=== PATIENT | male | born 1950 | race American Indian/Alaskan Native ===

== ENCOUNTER 2017-11-07 17:54 | Emergency (ER) | payer MEDICARE ==
[2017-11-07 19:54] LABS: Bacteria,Urine 1+ /HPF (Negative); Bilirubin,Urine SM (Negative); Blood,Urine MOD (Negative); Color,Urine Amber (Yellow); Hyaline Casts,Urine 4 /LPF; Mucus,Urine 2+ /HPF
[2017-11-07 19:56] LABS: WBC,Urine > 182.0 /HPF (0.0-6.0)
[2017-11-07 20:11] LABS: Ictotest,Urine Negative (Negative)
[2017-11-08 00:46] VITALS: BP 137/92
--- NOTE | 2017-11-08 01:26 | Emergency Department Report ---
ED Male HPI - General Chief complaint: Urogenital-Male Stated complaint: ACUTE URINARY RETENTION Time Seen by Provider: 11/08/17 00:24 Source: patient, family, RN notes reviewed, old records reviewed Mode of arrival: Ambulatory Limitations: No Limitations - History of Present Illness Initial comments: This is a 67-year-old male who is unknown to this provider previously. His primary care doctor is Dr. Garcia. He reports a distant history of prostatectomy. He recently completed a two- week antibiotic course of ciprofloxacin with Pyridium. He presents to the ER with a complaint of urinary hesitancy, dysuria, but no urinary obstruction. He denies headache, neck pain, upper abdominal pain. His urinary hesitancy has been constant for the past day or so, does not radiate anywhere, does not have exacerbating or relieving factors. MD Complaint: other -: Gradual Location: abdomen (suprapubic) Radiation: none Severity: mild Quality: aching Improves with: none Worsens with: none urinary retention, dysuria. denies: discharge, swelling, mass, rash, blood in urine, fever, nausea/vomiting, incontinence - Related Data Home Medications Medication Instructions Recorded Confirmed Last Taken Gabapentin 100 mg PO BID 12/20/13 01/04/17 02/16/15 Lisinopril 10 mg PO DAILY 12/20/13 01/04/17 02/16/15 Omeprazole 20 mg PO BID 01/04/17 01/04/17 Unknown Phenytoin [Dilantin] 100 mg PO DAILY 01/04/17 01/04/17 Unknown Previous Rx's Medication Instructions Recorded Last Taken Type ALBUTEROL Inhaler [ProAir HFA 2 puff IH QID PRN 30 Days 01/06/17 Unknown Rx Inhaler] inhalation Gabapentin [Neurontin] 200 mg PO BID #60 capsule 01/06/17 Unknown Rx Levofloxacin [Levaquin TAB] 750 mg PO Q24H #5 tablet 01/06/17 Unknown Rx Nitrofurantoin Dixon/M-Cryst 100 mg PO Q12HR #14 capsule 11/08/17 Unknown Rx [Macrobid CAP] Allergies Allergy/AdvReac Type Severity Reaction Status Date / Time No Known Allergies Allergy Verified 07/12/14 09:16 ED Review of Systems ROS: Stated complaint: ACUTE URINARY RETENTION Other details as noted in HPI Constitutional: denies: fever, malaise Eyes: denies: eye discharge ENT: denies: epistaxis Respiratory: denies: cough Cardiovascular: denies: chest pain Gastrointestinal: denies: nausea, vomiting Genitourinary: frequency. denies: testicular pain Musculoskeletal: denies: back pain Skin: denies: lesions Neurological: denies: weakness Psychiatric: anxiety ED Past Medical Hx - Past Medical History Previous Medical History?: Yes Hx Hypertension: Yes Hx Heart Attack/AMI: No Hx GERD: Yes Hx Seizures: Yes Additional medical history: Brain aneurysm patient states he had 7 aneurysms, neuropathy secondary to chemotherapy - Surgical History Past Surgical History?: Yes Hx Cholecystectomy: Yes Additional Surgical History: Brain - Social History Smoking Status: Current Every Day Smoker Substance Use Type: None - Medications Home Medications: Home Medications Medication Instructions Recorded Confirmed Last Taken Type Gabapentin 100 mg PO BID 12/20/13 01/04/17 02/16/15 History Lisinopril 10 mg PO DAILY 12/20/13 01/04/17 02/16/15 History Omeprazole 20 mg PO BID 01/04/17 01/04/17 Unknown History Phenytoin [Dilantin] 100 mg PO DAILY 01/04/17 01/04/17 Unknown History ALBUTEROL Inhaler [ProAir HFA 2 puff IH QID PRN 30 Days 01/06/17 Unknown Rx Inhaler] inhalation Gabapentin [Neurontin] 200 mg PO BID #60 capsule 01/06/17 Unknown Rx Levofloxacin [Levaquin TAB] 750 mg PO Q24H #5 tablet 01/06/17 Unknown Rx Nitrofurantoin Dixon/M-Cryst 100 mg PO Q12HR #14 capsule 11/08/17 Unknown Rx [Macrobid CAP] ED Physical Exam - General Limitations: No Limitations General appearance: alert, in no apparent distress - Head Head exam: Present: atraumatic, normocephalic - Eye Eye exam: Present: normal appearance. Absent: nystagmus - ENT ENT exam: Present: normal exam, normal orophraynx, mucous membranes moist, normal external ear exam - Neck Neck exam: Present: normal inspection, full ROM - Respiratory Respiratory exam: Present: normal lung sounds bilaterally. Absent: respiratory distress - Cardiovascular Cardiovascular Exam: Present: regular rate, normal rhythm, normal heart sounds. Absent: bradycardia, tachycardia, irregular rhythm, systolic murmur, diastolic murmur, rubs, gallop - GI/Abdominal GI/Abdominal exam: Present: soft, normal bowel sounds. Absent: distended, tenderness, guarding, rebound, rigid - Rectal Rectal exam: Present: deferred - exam: Present: normal inspection, other (there is no testicular tenderness. There is normal testicular lie bilaterally. There is normal cremasteric reflex bilaterally.). Absent: testicular tenderness External exam: Present: normal external exam. Absent: erythema, swelling - Extremities Exam Extremities exam: Present: normal inspection - Back Exam Back exam: Present: normal inspection, full ROM. Absent: tenderness, CVA tenderness (R), paraspinal tenderness, vertebral tenderness - Neurological Exam Neurological exam: Present: alert, oriented X3, CN II-XII intact, normal gait, other (Extraocular movements intact. Tongue midline. No facial droop. Facial sensation intact to light touch in the V1, V2, V3 distribution bilaterally. 5 and 5 strength in 4 extremities.. Sensation is intact to light touch in 4 extremities.). Absent: motor sensory deficit - Psychiatric Psychiatric exam: Present: normal affect, anxious - Skin Skin exam: Present: warm, dry, intact, normal color. Absent: rash ED Course Vital Signs 11/07/17 11/07/17 11/08/17 18:23 22:00 00:40 Temperature 98.3 F 98.1 F 97.6 F Pulse Rate 105 H 84 78 Respiratory 20 20 16 Rate Blood Pressure 147/106 139/107 Blood Pressure 137/92 [Right] O2 Sat by Pulse 95 97 95 Oximetry ED Medical Decision Making - Lab Data Vital Signs 11/07/17 11/07/17 11/08/17 18:23 22:00 00:40 Temperature 98.3 F 98.1 F 97.6 F Pulse Rate 105 H 84 78 Respiratory 20 20 16 Rate Blood Pressure 147/106 139/107 Blood Pressure 137/92 [Right] O2 Sat by Pulse 95 97 95 Oximetry Lab Results 11/07/17 Range/Units 19:03 Urine Color Sia (Yellow) Urine Turbidity Clear (Clear) Urine pH 5.0 (5.0-7.0) Ur Specific [place] 1.027 (1.003-1.030) Urine Protein 100 mg/dl (Negative) mg/dL Urine Glucose (UA) Neg (Negative) mg/dL Urine Ketones Neg (Negative) mg/dL Urine Blood Mod (Negative) Urine Nitrite Neg (Negative) Urine Bilirubin Sm (Negative) Urine Ictotest Negative (Negative) Urine Urobilinogen 4.0 (<2.0) mg/dL Ur Leukocyte Esterase Lg (Negative) Urine WBC (Auto) > 182.0 H (0.0-6.0) /HPF Urine RBC (Auto) 62.0 (0.0-6.0) /HPF U Epithel Cells (Auto) 2.0 (0-13.0) /HPF Urine Bacteria (Auto) 1+ (Negative) /HPF Urine WBC Clumps 2+ /HPF Hyaline Casts 4 /LPF Urine Mucus 2+ /HPF Urine Yeast (Budding) 3+ /HPF - Medical Decision Making Differential diagnosis, including but not limited to: Urinary tract infection Assessment and plan: 67-year-old male with some irritative, obstructive urinary symptoms, endorses a distant history of prostatectomy, who presents to the ER with a probable urinary tract infection. Patient does not have urinary tract obstruction as he is able to urinate. Patient has already completed a recent course of ciprofloxacin. There is a fair amount of resistance in the community to this antibiotic. He will therefore be started on Macrobid. Critical care attestation.: If time is entered above; I have spent that time in minutes in the direct care of this critically ill patient, excluding procedure time. ED Disposition Clinical Impression: UTI (urinary tract infection) Qualifiers: Urinary tract infection type: site unspecified Hematuria presence: without hematuria Qualified Code(s): N39.0 - Urinary tract infection, site not specified Disposition: DC- TO HOME OR SELFCARE Is pt being admited?: No Does the pt Need Aspirin: No Condition: Stable Instructions: Urinary Tract Infection in Men (ED) Additional Instructions: Continue current outpatient medications. Take the antibiotics as directed. Cultures was sent today, as also be available in the next 3-5 days. Please have a primary care doctor contact medical's Department to obtain culture results. Follow-up with the primary care doctor within the next 7 days, and if patient still has obstructive urinary symptoms, follow up with the urology specialist within the next month. Dr. Goldstein is a local urology specialist. Return to the ER right away with fevers, chills, lethargy, irritability, projectile vomiting, change in mental status, confusion, inability to urinate, inability to tolerate liquid feeds. Referrals: PRIMARY CARE, [Primary Care Provider] - 3-5 Days HERIBERTO GARCIA MD [Staff Physician] - 3-5 Days JOSIAS GOLDSTEIN MD [Staff Physician] - 3-5 Days
== END 2017-11-08 02:03 | disposition home or self-care (01) ==
LOC: ED 17:54
DX: N39.0 Urinary tract infection, site not specified (principal); K21.9 Gastro-esophageal reflux disease without esophagitis; I10 Essential (primary) hypertension; I67.1 Cerebral aneurysm, nonruptured; F17.200 Nicotine dependence, unspecified, uncomplicated; Z90.49 Acquired absence of other specified parts of digestive tract; Z79.01 Long term (current) use of anticoagulants
CPT/HCPCS: 81001; 87086; 99283

== ENCOUNTER 2018-05-22 00:08 | Inpatient (IN) | payer MEDICARE ==
[2018-05-22 01:57] LABS: Hematocrit 46.4 % (35.5-45.6); Hemoglobin 15.4 gm/dl (11.8-15.2); Mean Corpuscular HGB Conc 33 % (32-34); Mean Corpuscular Volume 94 fl (84-94); Platelet Count 297 K/mm3 (140-440); Red Blood Count 4.95 M/mm3 (3.65-5.03); Red Cell Distribution Width 13.6 % (13.2-15.2)
[2018-05-22 02:16] LABS: Alanine Aminotransferase 17 units/L (7-56); Albumin 3.6 g/dL (3.9-5); BUN/Creatinine Ratio 11; Blood Urea Nitrogen 14 mg/dL (9-20); Hemolysis Index 4
[2018-05-22] MEDS ORDERED: THORAZINE 50 MG in NACL 0.9% 100 ML IV ONE (03:38)
[2018-05-22] MEDS ORDERED: NACL 0.9% 1000 ML 1,000 ML IV ONE (03:40)
[2018-05-22 04:33] LABS: Bacteria,Urine 3+ /HPF (Negative); Bilirubin,Urine SM (Negative); Blood,Urine SM (Negative); Color,Urine Amber (Yellow); Hyaline Casts,Urine 44 /LPF; Mucus,Urine 3+ /HPF
[2018-05-22 04:34] LABS: WBC,Urine > 182.0 /HPF (0.0-6.0)
[2018-05-22 04:44] LABS: Ictotest,Urine Positive (Negative)
[2018-05-22] MEDS ORDERED: ROCEPHIN/NS 1 GM/50 ML 1 GM/50 ML BAG IV ONE (05:02)
--- NOTE | 2018-05-22 05:31 | Emergency Department Report ---
<ANN WOLFE - Last Filed: 05/22/18 10:38> ED General Adult HPI - General Chief complaint: Nausea/Vomiting/Diarrhea Stated complaint: HICCUPS/ABDOMINAL PAIN Time Seen by Provider: 05/22/18 03:21 - Related Data Home Medications Medication Instructions Recorded Confirmed Last Taken RX: Lisinopril 10 mg PO DAILY 12/20/13 05/22/18 02/16/15 Dilantin 400 mg PO DAILY 05/22/18 05/22/18 Unknown Metoprolol [Lopressor TAB] 50 mg PO BID 05/22/18 05/22/18 Unknown RX: Gabapentin [Neurontin] 100 mg PO BID 05/22/18 05/22/18 Unknown RX: Omeprazole 20 mg PO BID 05/22/18 05/22/18 Unknown Tamsulosin HCl [Flomax] 0.4 mg PO DAILY 05/22/18 05/22/18 Unknown levETIRAcetam [Keppra] 500 mg PO Q12H 05/22/18 05/22/18 Unknown Allergies Allergy/AdvReac Type Severity Reaction Status Date / Time No Known Allergies Allergy Verified 05/10/18 08:56 ED Past Medical Hx - Medications Home Medications: Home Medications Medication Instructions Recorded Confirmed Last Taken Type RX: Lisinopril 10 mg PO DAILY 12/20/13 05/22/18 02/16/15 History Dilantin 400 mg PO DAILY 05/22/18 05/22/18 Unknown History Metoprolol [Lopressor TAB] 50 mg PO BID 05/22/18 05/22/18 Unknown History RX: Gabapentin [Neurontin] 100 mg PO BID 05/22/18 05/22/18 Unknown History RX: Omeprazole 20 mg PO BID 05/22/18 05/22/18 Unknown History Tamsulosin HCl [Flomax] 0.4 mg PO DAILY 05/22/18 05/22/18 Unknown History levETIRAcetam [Keppra] 500 mg PO Q12H 05/22/18 05/22/18 Unknown History ED Medical Decision Making - Lab Data Result diagrams: 05/22/18 01:13 05/22/18 01:13 - Medical Decision Making I assumed care of patient. After IVF, patient had worsening tachycardia and work of breathing. He was moved to resuscitation room. Multiple orders provided. I ordered ABG. No indication of impending respiratory failure. I did detect mild hypoxia on triage vital signs. With hx of hiccups, concern for PNA, intrabdominal process or cardiac process. CTA chest revealed emphysematous changes without PNA or overt pulmonary edema. CT A/P revealed acute pyelonephritis, acute cystitis. Treated with IVF and ceftriaxone per my colleague. Did not received 30 ml/KG with normal BP and normal lactic acid level. Admitted to hospitalist service in guarded condition for UTI/sepsis 40 minutes of critical care time excluding procedures were used in the care of the patient. I was concerned for impending respiratory failure or cardiovascular collapse. I spoke with the at the bedside. I reviewed electronic medical record. Mr. Herrera required multiple interventions and assessments. I discussed case with admitting physician. Critical Care Time: Yes Critical care time in (mins) excluding proc time.: 40 Critical care attestation.: 40 minutes of critical care time excluding procedures were used in the care of the patient. Patient required multiple assessments and interventions. I reviewed the electronic medical record. I spoke with consultants involved in the care of the patient. ED Disposition Clinical Impression: Hiccups, UTI (urinary tract infection), Acute pyelonephritis Sepsis Qualifiers: Sepsis type: sepsis due to unspecified organism Qualified Code(s): A41.9 - Sepsis, unspecified organism Disposition: OP ADMIT IP TO THIS HOSP Is pt being admited?: Yes Does the pt Need Aspirin: No Condition: Stable <ADI LAYNE - Last Filed: 05/24/18 15:59> ED General Adult HPI - General Source: patient Mode of arrival: Ambulatory Limitations: No Limitations - History of Present Illness Initial comments: 67-year-old male with a past medical history of prostate cancer in remission, GERD, hypertension, seizures, brain aneurysm, a previous cholecystectomy presents to the hospital with complaints of hiccups for 3-4 days. One episode of vomiting. Decreased appetite reported. Generalized weakness without fever. Patient had been increased urination with a small amount of output at a time. Denies pain. PT takes Dilantin for peti mal sz. 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, neuropathy secondary to chemotherapy, prostate cancer status post radiation - Surgical History Past Surgical History?: Yes Hx Cholecystectomy: Yes Additional Surgical History: Brain - Social History Smoking Status: Current Every Day Smoker Substance Use Type: None ED Physical Exam - General Limitations: No Limitations - Other Other exam information: General: No limitations, patient is alert in no acute distress Head exam: Atraumatic, normocephalic Eyes exam: Normal appearance ENT: Moist mucous membrane Neck exam: Normal inspection, full range of motion, no meningismus nontender Respiratory exam: Clear to auscultation bilateral, no wheezes, rales, crackles Cardiovascular: Normal rate and rhythm, normal heart sounds Abdomen: Soft, nondistended, and nontender, with normal bowel sounds, no rebound, or guarding. Frequent hiccups noted during examination making it difficult for patient to speak Extremity: Full range of motion normal inspection no deformity Back: Normal Inspection, full range of motion, no tenderness Neurologic: Alert, oriented x3, cranial nerves intact, no motor or sensory deficit Psychiatric: normal affect, normal mood Skin: Warm, dry, intact ED Course Vital Signs 05/22/18 05/22/18 05/22/18 00:34 01:03 02:30 Temperature 98.8 F 98.8 F Pulse Rate 111 H 111 H 102 H Respiratory 18 18 15 Rate Blood Pressure 125/74 125/74 102/63 Blood Pressure [Left] O2 Sat by Pulse 94 95 97 Oximetry 05/22/18 05/22/18 05/22/18 02:46 03:00 03:16 Temperature Pulse Rate Respiratory Rate Blood Pressure 102/63 115/74 115/74 Blood Pressure [Left] O2 Sat by Pulse 94 92 93 Oximetry 05/22/18 05/22/18 05/22/18 03:30 03:46 04:00 Temperature Pulse Rate 96 H 102 H Respiratory 19 19 Rate Blood Pressure 119/59 115/74 115/74 Blood Pressure [Left] O2 Sat by Pulse 93 96 95 Oximetry 05/22/18 05/22/18 05/22/18 04:30 05:00 05:30 Temperature Pulse Rate 108 H 116 H 116 H Respiratory 32 H 34 H 31 H Rate Blood Pressure 122/74 122/74 114/73 Blood Pressure [Left] O2 Sat by Pulse 93 89 92 Oximetry 05/22/18 05/22/18 05/22/18 06:00 07:00 07:30 Temperature Pulse Rate 120 H 122 H 125 H Respiratory 31 H 33 H 34 H Rate Blood Pressure 131/84 137/86 142/87 Blood Pressure [Left] O2 Sat by Pulse 94 92 92 Oximetry 05/22/18 05/22/18 05/22/18 08:10 08:20 08:21 Temperature Pulse Rate 136 H 128 H 128 H Respiratory 26 H 30 H 33 H Rate Blood Pressure Blood Pressure 128/96 135/87 [Left] O2 Sat by Pulse 96 96 96 Oximetry 05/22/18 05/22/18 05/22/18 08:30 09:00 09:15 Temperature Pulse Rate 129 H 126 H 128 H Respiratory 32 H 38 H 26 H Rate Blood Pressure 138/89 126/79 Blood Pressure 115/73 [Left] O2 Sat by Pulse 96 95 96 Oximetry 05/22/18 05/22/18 05/22/18 09:53 10:00 10:30 Temperature Pulse Rate 118 H 117 H 116 H Respiratory 21 28 H 31 H Rate Blood Pressure 115/73 128/82 135/81 Blood Pressure [Left] O2 Sat by Pulse 99 99 Oximetry 05/22/18 05/22/18 05/22/18 11:00 11:30 12:00 Temperature 98.3 F Pulse Rate 116 H 115 H 113 H Respiratory 30 H 30 H 30 H Rate Blood Pressure 133/74 117/71 135/81 Blood Pressure 135/81 [Left] O2 Sat by Pulse 97 95 Oximetry 05/22/18 05/22/18 05/22/18 12:30 12:50 13:00 Temperature Pulse Rate 112 H 113 H 118 H Respiratory 29 H 33 H 28 H Rate Blood Pressure 138/74 138/74 106/72 Blood Pressure [Left] O2 Sat by Pulse 97 97 100 Oximetry ED Medical Decision Making - Lab Data Result diagrams: 05/24/18 05:14 05/24/18 05:14 Lab Results 05/22/18 05/22/18 05/22/18 Range/Units 01:13 01:13 Unknown WBC 15.5 H (4.5-11.0) K/mm3 RBC 4.95 (3.65-5.03) M/mm3 Hgb 15.4 H (11.8-15.2) gm/dl Hct 46.4 H (35.5-45.6) % MCV 94 (84-94) fl MCH 31 (28-32) pg MCHC 33 (32-34) % RDW 13.6 (13.2-15.2) % Plt Count 297 (140-440) K/mm3 Cook % (Auto) Sports Reporter Sodium 141 (137-145) mmol/L Potassium 3.6 (3.6-5.0) mmol/L Chloride 100.7 (98-107) mmol/L Carbon Dioxide 24 (22-30) mmol/L Anion Gap 20 mmol/L BUN 14 (9-20) mg/dL Creatinine 1.3 (0.8-1.5) mg/dL Estimated GFR > 60 ml/min BUN/Creatinine Ratio 11 % Glucose 137 H (75-100) mg/dL Calcium 9.0 (8.4-10.2) mg/dL Total Bilirubin 2.50 H (0.1-1.2) mg/dL AST 21 (5-40) units/L ALT 17 (7-56) units/L Alkaline Phosphatase 112 (35-129) units/L Total Protein 7.8 (6.3-8.2) g/dL Albumin 3.6 L (3.9-5) g/dL Albumin/Globulin Ratio 0.9 % Lipase 31 (13-60) units/L Urine Color Sia (Yellow) Urine Turbidity Cloudy (Clear) Urine pH 5.0 (5.0-7.0) Ur Specific [place] 1.014 (1.003-1.030) Urine Protein 100 mg/dl (Negative) mg/dL Urine Glucose (UA) 50 (Negative) mg/dL Urine Ketones Neg (Negative) mg/dL Urine Blood Sm (Negative) Urine Nitrite Neg (Negative) Urine Bilirubin Sm (Negative) Urine Ictotest Positive (Negative) Urine Urobilinogen 4.0 (<2.0) mg/dL Ur Leukocyte Esterase Mod (Negative) Urine WBC (Auto) > 182.0 H (0.0-6.0) /HPF Urine RBC (Auto) 14.0 (0.0-6.0) /HPF U Epithel Cells (Auto) 5.0 (0-13.0) /HPF Urine Bacteria (Auto) 3+ (Negative) /HPF Urine WBC Clumps 3+ /HPF Ur Transition Epith Cell 1 /HPF Hyaline Casts 44 /LPF Urine Mucus 3+ /HPF - Medical Decision Making Urinary positive for infection Rocephin provided Thorazine provided for hiccups with improvement pt will be d/oma after Liter of NS compete - Differential Diagnosis UTI, hiccups, BPH, prostate cancer Critical Care Time: No Critical care attestation.: If time is entered above; I have spent that time in minutes in the direct care of this critically ill patient, excluding procedure time. ED Disposition Is pt being admited?: Yes Does the pt Need Aspirin: No
[2018-05-22 07:40] LABS: Band Neutrophils # (Manual) 0.8 K/mm3; Basophils % (Manual) 0 % (0.0-1.8); Eosinophils % (Manual) 0 % (0.0-4.3); RBC Morphology Normal; Total Cells Counted 100
--- NOTE | 2018-05-22 08:21 | XRay Report ---
AP CHEST: HISTORY: Tachypnea, tachycardia Given differences in the level of inspiration, no significant change can be appreciated since 01/04/17. Heart size and pulmonary vascularity are within normal limits. There are minor bibasilar atelectatic changes. No evidence for pneumonia, large pleural effusion or pneumothorax. The bony structures are grossly intact. IMPRESSION: Negative expiratory AP chest.
--- NOTE | 2018-05-22 10:12 | Cat Scan Report ---
CTA CHEST: HISTORY: Hiccups, hypoxia, abdominal pain. COMPARISON: CT chest without contrast performed 01/06/17. TECHNIQUE: Helical CT in 1.25mm intervals following IV contrast. Pulmonary embolus protocol. Sagittal and coronal reformatted images. Rotational MIP images. FINDINGS: The images are slightly limited by breathing motion artifact. Contrast bolus is satisfactory. No pulmonary embolus is identified. Thyroid gland: Normal. Tracheobronchial tree: Normal. Esophagus: Normal. Heart: Normal. Pericardium: Normal. Mediastinum: Normal. Lung Cherry: Mild paracentral and paraseptal emphysematous changes are stable. Minor discoid atelectasis is noted in the lingula. No evidence for pneumonia, nodule or mass. Pleural Spaces: Normal. Musculoskeletal: Intact. Mild thoracic spondylosis is noted. IMPRESSION: No evidence for pulmonary embolus. Mild emphysematous changes. Minor atelectatic changes in the lingula. No acute cardiopulmonary process is identified.
--- NOTE | 2018-05-22 10:20 | Cat Scan Report ---
CT ABDOMEN PELVIS WITH CONTRAST: HISTORY: abdominal pain. COMPARISON: 01/04/17. TECHNIQUE: Helical CT in 1.25mm intervals following IV contrast. Sagittal and coronal reconstructions. FINDINGS: Liver: Within normal limits. 1 cm left hepatic lobe cyst is again noted. Biliary system: Cholecystectomy. No biliary dilatation. Pancreas: Normal. Spleen: Normal. Kidneys/ureters/bladder: The left kidney and collecting system are within normal limits. A few tiny left renal cysts are noted. Mild right hydronephrosis is suspected. No obstructing lesion is seen in the distal right ureter. Subtle perfusion defects are identified in the right kidney on the delayed images. There is mild urothelial enhancement in the right ureter and mild right perinephric stranding. The bladder is partially empty. Mild mucosal enhancement is also suspected in the bladder. The bladder wall is slightly thickened measuring 6 mm. Adrenal glands: Normal. Aorta: Normal. Intestines: Within normal limits given no oral contrast was administered. Mild diverticulosis of the distal colon stable. Appendix: Normal. Ascites: None. Adenopathy: None. Musculoskeletal: Intact. Moderate to severe degenerative disc disease is noted throughout the lumbar spine and bilateral hips. IMPRESSION: There are subtle perfusion defects in the right kidney which could represent pyelonephritis. Mild right hydronephrosis has also developed although no obstructing lesion is identified in the right ureter. There is mild urothelial enhancement in the right collecting system and bladder which may represent cystitis. Please correlate with the patient for right-sided renal symptoms/cystitis. Cholecystectomy. Few scattered liver and renal cysts. Mild diverticulosis of the distal colon. Degenerative changes as described.
[2018-05-22] MEDS ORDERED: PROVENTIL IH PRN (12:20)
[2018-05-22] MEDS ORDERED: SODIUM CHLORIDE FLUSH SYRINGE 10 ML IV PRN (12:20)
[2018-05-22] MEDS ORDERED: ZOFRAN IV PRN (12:20)
[2018-05-22] MEDS ORDERED: NACL 0.9% 1000 ML IV ONE (12:20)
--- NOTE | 2018-05-22 13:07 | History and Physical Report ---
History of Present Illness Date of admission: 05/22/18 12:20 Chief complaint: I feel weak History of present illness: 67 YO Male with CaP, HTN, Seizure Disorder, GERD, Nicotine Dependence presents to ED for evaluation. Pt is confused and lethargic at time of my exam. Pt provides limited history. Pt reports feeling tired. Pt transported to [facility] for further care and evaluation by family. Pt history taken from ED staff and medical record. As per staff, the patient reported pain in his epigastric region, shortness of breath, cough and diaphoresis including feeling clammy. Pt denied nausea and vomiting during these episodes of pain. Pt seen and evaluated in ED and found to have UTI complicated by Sepsis as well as Encephalopathy. Pt initiated on sepsis protocol and admitted to [facility] with Remote telemetry. No further history obtainable. Past History Past Medical History: cancer, hypertension, seizures, other (brain aneurysm) Past Surgical History: Other (brain surgery) Social history: , smoking. denies: alcohol abuse, prescription drug abuse, IV drug use Family history: hypertension Medications and Allergies Allergies Allergy/AdvReac Type Severity Reaction Status Date / Time No Known Allergies Allergy Verified 05/10/18 08:56 Home Medications Medication Instructions Recorded Confirmed Last Taken Type Lisinopril 10 mg PO DAILY 12/20/13 05/22/18 02/16/15 History Gabapentin [Neurontin] 100 mg PO BID 05/22/18 05/22/18 Unknown History Metoprolol [Lopressor TAB] 50 mg PO BID 05/22/18 05/22/18 Unknown History Omeprazole 20 mg PO DAILY 05/22/18 05/22/18 Unknown History Tamsulosin HCl [Flomax] 0.4 mg PO DAILY 05/22/18 05/22/18 Unknown History levETIRAcetam [Keppra] 500 mg PO Q12H 05/22/18 05/22/18 Unknown History Active Meds: Active Medications Acetaminophen (Tylenol) 650 mg PO Q4H PRN PRN Reason: Pain MILD(1-3)/Fever >100.5/ROY Albuterol (Proventil) 2.5 mg IH Q4HRT PRN PRN Reason: Shortness Of Breath Ceftriaxone Sodium (Rocephin/Ns 1 Gm/50 Ml) 1 gm in 50 mls @ 100 mls/hr IV Q24HR GE[facility]; Protocol Stop: 05/25/18 10:29 Ondansetron HCl (Zofran) 4 mg IV Q8H PRN PRN Reason: Nausea And Vomiting Sodium Chloride (Sodium Chloride Flush Syringe 10 Ml) 10 ml IV BID GEOFFREY Sodium Chloride (Sodium Chloride Flush Syringe 10 Ml) 10 ml IV PRN PRN PRN Reason: LINE FLUSH Review of Systems ROS unobtainable: due to mental status Exam - Constitutional Vitals: Temp Pulse Resp BP Pulse Ox 98.3 F 112 H 29 H 138/74 97 05/22/18 12:00 05/22/18 12:30 05/22/18 12:30 05/22/18 12:30 05/22/18 12:30 General appearance: Present: mild distress - EENT Eyes: Present: PERRL ENT: hearing intact, clear oral mucosa - Neck Neck: Present: supple, normal ROM - Respiratory Respiratory effort: labored Respiratory: bilateral: diminished, rhonchi - Cardiovascular Rhythm: other (tachycardia) Heart Sounds: Present: S1 & S2. Absent: rub, click - Extremities Extremities: pulses symmetrical Extremity abnormal: edema Peripheral Pulses: within normal limits - Abdominal General gastrointestinal: Present: soft, non-tender, non-distended, normal bowel sounds Localized gastrointestinal: tender: suprapubic Male genitourinary: Present: normal - Integumentary Integumentary: Present: clear, dry, clammy, decreased turgor - Musculoskeletal Musculoskeletal: generalized weakness - Psychiatric Psychiatric: no appropriate mood/affect, no intact judgment & insight, no memory intact - Neurologic Neurologic: CNII-XII intact, no focal deficits, moves all extremities, no gait normal Results - Labs CBC & Chem 7: 05/22/18 01:13 05/22/18 01:13 Labs: Abnormal lab results 05/22/18 05/22/18 05/22/18 Range/Units 01:13 01:13 08:30 WBC 15.5 H (4.5-11.0) K/mm3 Hgb 15.4 H (11.8-15.2) gm/dl Hct 46.4 H (35.5-45.6) % Lymphocytes % (Manual) 8.0 L (13.4-35.0) % Monocytes % (Manual) 19.0 H (0.0-7.3) % Seg Neutrophils # Man 10.5 H (1.8-7.7) K/mm3 Monocytes # (Manual) 2.9 H (0.0-0.8) K/mm3 POC ABG pCO2 31.0 L (35-45) Glucose 137 H (75-100) mg/dL Total Bilirubin 2.50 H (0.1-1.2) mg/dL Albumin 3.6 L (3.9-5) g/dL Urine WBC (Auto) (0.0-6.0) /HPF 05/22/18 Range/Units Unknown WBC (4.5-11.0) K/mm3 Hgb (11.8-15.2) gm/dl Hct (35.5-45.6) % Lymphocytes % (Manual) (13.4-35.0) % Monocytes % (Manual) (0.0-7.3) % Seg Neutrophils # Man (1.8-7.7) K/mm3 Monocytes # (Manual) (0.0-0.8) K/mm3 POC ABG pCO2 (35-45) Glucose (75-100) mg/dL Total Bilirubin (0.1-1.2) mg/dL Albumin (3.9-5) g/dL Urine WBC (Auto) > 182.0 H (0.0-6.0) /HPF Assessment and Plan - Patient Problems (1) Sepsis Current Visit: Yes Status: Acute Qualifiers: Sepsis type: sepsis due to unspecified organism Qualified Code(s): A41.9 - Sepsis, unspecified organism Plan to address problem: Admit to [facility], Remote telemetry, IV antibiotic therapy, blood cultures, CBC, CMP, serial lactic acid, chest x ray, urinalysis, monitor uop q shift, (2) Nicotine dependence unspecified, with withdrawal Current Visit: Yes Status: Acute Qualifiers: Nicotine product type: cigarettes Qualified Code(s): F17.213 - Nicotine dependence, cigarettes, with withdrawal Plan to address problem: supportive care, smoking cessation counseling (3) Seizure Current Visit: Yes Status: Acute Plan to address problem: Supportive care, seizure disorder, (4) HTN (hypertension) Current Visit: Yes Status: Acute Qualifiers: Hypertension type: essential hypertension Qualified Code(s): I10 - Essential (primary) hypertension Plan to address problem: monitor bp q shift, continue medical management, reassess S/P IVF resuscitation (5) Acute pyelonephritis Current Visit: Yes Status: Acute Plan to address problem: IV antibiotic therapy, urinalysis, monitor uop q shift, (6) Encephalopathy Current Visit: Yes Status: Acute Plan to address problem: Toxic Encephalopathy: Treat sepsis, CT Head, neuro checks, aspiration precautions, fall precautions. (7) DVT prophylaxis Current Visit: Yes Status: Acute Plan to address problem: SCD to BLE while in bed.
[2018-05-22] MEDS ORDERED: VANCOMYCIN/NS 1 GM/250 ML 1 GM/250 ML BAG IV ONE (13:09)
[2018-05-22] MEDS ORDERED: VANCOMYCIN 2,000 MG in NACL 0.9% 500 ML 500 ML IV ONE (14:00)
[2018-05-22] MEDS: TYLENOL PO PRN (21:35)
[2018-05-22] MEDS: SODIUM CHLORIDE FLUSH SYRINGE 10 ML IV SCH (21:36)
[2018-05-23 06:46] LABS: Basophils % (Auto) 0.2 % (0.0-1.8); Eosinophils # (Auto) 0.1 K/mm3 (0.0-0.4); Eosinophils % (Auto) 0.8 % (0.0-4.3); Hematocrit 40.2 % (35.5-45.6); Hemoglobin 13.3 gm/dl (11.8-15.2); Lymphocytes # (Auto) 1.3 K/mm3 (1.2-5.4); Lymphocytes % (Auto) 11.4 % (13.4-35.0); Mean Corpuscular HGB Conc 33 % (32-34); Mean Corpuscular Volume 94 fl (84-94); Monocytes # (Auto) 1.5 K/mm3 (0.0-0.8); Monocytes % (Auto) 12.4 % (0.0-7.3); Platelet Count 244 K/mm3 (140-440); Red Blood Count 4.29 M/mm3 (3.65-5.03); Red Cell Distribution Width 13.5 % (13.2-15.2)
[2018-05-23 06:59] LABS: BUN/Creatinine Ratio 15; Blood Urea Nitrogen 17 mg/dL (9-20); Calcium 8.4 mg/dL (8.4-10.2); Hemolysis Index 10
[2018-05-23] MEDS: ROCEPHIN/NS 1 GM/50 ML 1 GM/50 ML BAG IV SCH (09:24)
[2018-05-23] MEDS: SODIUM CHLORIDE FLUSH SYRINGE 10 ML IV SCH ×2 (09:25→22:41)
[2018-05-23] MEDS ORDERED: DILANTIN 400 MG PO SCH (10:00)
[2018-05-23] MEDS ORDERED: NON-FORMULARY (Omeprazole [Omeprazole] 20 MG) PO SCH (10:00)
[2018-05-23] MEDS: NEURONTIN PO SCH ×2 (11:10→22:39)
[2018-05-23] MEDS: FLOMAX PO SCH (11:10)
[2018-05-23] MEDS: KEPPRA PO SCH ×2 (11:11→23:41)
[2018-05-23] MEDS: LOPRESSOR PO SCH ×2 (11:12→22:41)
[2018-05-23] MEDS: ZESTRIL PO SCH (11:12)
[2018-05-23] MEDS: PROTONIX PO SCH ×2 (11:19→22:39)
[2018-05-23] MEDS: DILANTIN PO SCH (11:36)
--- NOTE | 2018-05-23 12:09 | Cat Scan Report ---
CT HEAD WITHOUT CONTRAST: HISTORY: Encephalopathy. TECHNIQUE: Sequential CT images without contrast. FINDINGS: Compared to 12/22/13. Previous left craniotomy changes are identified. Surgical clips are noted in the left sylvian fissure which may represent previous aneurysm repair, correlate with history. Focal areas of encephalomalacia in the left anterior temporal lobe and left parietal lobe are again noted and unchanged. Mild diffuse volume loss is stable. No evidence for hemorrhage, mass, mass effect or large area of acute ischemia on noncontrast CT. Ventricular size is within normal limits. The posterior fossa contents are unremarkable. IMPRESSION: Chronic findings as outlined above which are stable since 12/22/13. No acute intracranial process is identified.
[2018-05-23] MEDS: HABITROL TD SCH (13:02)
[2018-05-23] MEDS: MAGIC MOUTHWASH PO SCH ×2 (13:03→20:49)
--- NOTE | 2018-05-23 15:53 | Progress Note ---
Assessment and Plan Assessment and plan: 67 YO Male with CaP, HTN, Seizure Disorder, GERD, Nicotine Dependence presents to ED for evaluation. Pt is confused and lethargic on admission. Pt provides limited history. Pt reports feeling tired. Pt transported to [facility] for further care and evaluation by family. The patient reported pain in his epigastric region, shortness of breath, cough and diaphoresis including feeling clammy. Pt denied nausea and vomiting during these episodes of pain. Pt seen and evaluated in ED and found to have UTI complicated by Sepsis as well as Encephalopathy. On reexamination he reports suprapubic pain. Sepsis Acute Pyelonephritis Acute Metabolic Encephalopathy Right Hydronephrosis Hiccups, now resolved Hypokalemia Seizure HTN Nicotine dependence unspecified, with withdrawal Plan - Continue supportive care - Urology consult - Urine culture - Continue Garcia till evaluated by Urology - Replace K - Continue Abx and descalate based on Micro data. - DVT/GI prophy - Plan discussed with the patient and nursing staff History Interval history: Patient is seen today for: Sepsis with Hydronephrosis Seen and examined at bedside; 24hour events reviewed; nursing staff ; no adverse overnight events reported to me; Reports suprapubic pain. Denies any chest pain, nausea, vomiting, diarrhea No fever noted blood pressure controlled Hospitalist Physical - Physical exam Narrative exam: VITAL SIGNS: Reviewed. GENERAL: The patient appeared chronically ill appearing. Vital signs as documented. HEAD: No signs of head trauma. EYES: Pupils are equal. Extraocular motions intact. EARS: Hearing grossly intact. MOUTH: Oropharynx is normal. NECK: No adenopathy, no JVD. CHEST: Chest with clear breath sounds bilaterally. No wheezes, rales, or rhonchi. CARDIAC: Regular rate and rhythm. S1 and S2, without murmurs, gallops, or rubs. VASCULAR: No Edema. Peripheral pulses normal and equal in all extremities. ABDOMEN: Soft, without detectable tenderness except suprapubic area. No sign of distention. No rebound or guarding, and no masses palpated. Bowel Sounds normal. MUSCULOSKELETAL: Good range of motion of all major joints. Extremities without clubbing, cyanosis or edema. NEUROLOGIC EXAM: Alert and oriented x 3. No focal sensory or strength deficits. Speech normal. Follows commands. PSYCHIATRIC: Mood normal. SKIN: No rash or lesions. - Constitutional Vitals: Temp Pulse Resp BP Pulse Ox 101.0 F H 75 20 104/71 97 05/23/18 13:27 05/23/18 13:27 05/23/18 13:27 05/23/18 13:27 05/23/18 13:27 General appearance: Present: mild distress Results - Labs CBC & Chem 7: 05/23/18 05:10 05/23/18 05:10 Labs: Laboratory Last Values WBC 11.7 K/mm3 (4.5-11.0) H 05/23/18 05:10 RBC 4.29 M/mm3 (3.65-5.03) 05/23/18 05:10 Hgb 13.3 gm/dl (11.8-15.2) 05/23/18 05:10 Hct 40.2 % (35.5-45.6) D 05/23/18 05:10 MCV 94 fl (84-94) 05/23/18 05:10 MCH 31 pg (28-32) 05/23/18 05:10 MCHC 33 % (32-34) 05/23/18 05:10 RDW 13.5 % (13.2-15.2) 05/23/18 05:10 Plt Count 244 K/mm3 (140-440) 05/23/18 05:10 Lymph % (Auto) 11.4 % (13.4-35.0) L 05/23/18 05:10 [place] % (Auto) 12.4 % (0.0-7.3) H 05/23/18 05:10 Eos % (Auto) 0.8 % (0.0-4.3) 05/23/18 05:10 Baso % (Auto) 0.2 % (0.0-1.8) 05/23/18 05:10 Lymph # 1.3 K/mm3 (1.2-5.4) 05/23/18 05:10 [place] # 1.5 K/mm3 (0.0-0.8) H 05/23/18 05:10 Eos # 0.1 K/mm3 (0.0-0.4) 05/23/18 05:10 Baso # 0.0 K/mm3 (0.0-0.1) 05/23/18 05:10 Add Manual Diff Complete 05/22/18 01:13 Total Counted 100 05/22/18 01:13 Seg Neutrophils % 75.2 % (40.0-70.0) H 05/23/18 05:10 Seg Neuts % (Manual) 68.0 % (40.0-70.0) 05/22/18 01:13 Band Neutrophils % 5.0 % 05/22/18 01:13 Lymphocytes % (Manual) 8.0 % (13.4-35.0) L 05/22/18 01:13 Reactive Lymphs % (Man) 0 % 05/22/18 01:13 Monocytes % (Manual) 19.0 % (0.0-7.3) H 05/22/18 01:13 Eosinophils % (Manual) 0 % (0.0-4.3) 05/22/18 01:13 Basophils % (Manual) 0 % (0.0-1.8) 05/22/18 01:13 Metamyelocytes % 0 % 05/22/18 01:13 Myelocytes % 0 % 05/22/18 01:13 Promyelocytes % 0 % 05/22/18 01:13 Blast Cells % 0 % 05/22/18 01:13 Nucleated RBC % Not Reportable 05/22/18 01:13 Seg Neutrophils # 8.8 K/mm3 (1.8-7.7) H 05/23/18 05:10 Seg Neutrophils # Man 10.5 K/mm3 (1.8-7.7) H 05/22/18 01:13 Band Neutrophils # 0.8 K/mm3 05/22/18 01:13 Lymphocytes # (Manual) 1.2 K/mm3 (1.2-5.4) 05/22/18 01:13 Abs React Lymphs (Man) 0.0 K/mm3 05/22/18 01:13 Monocytes # (Manual) 2.9 K/mm3 (0.0-0.8) H 05/22/18 01:13 Eosinophils # (Manual) 0.0 K/mm3 (0.0-0.4) 05/22/18 01:13 Basophils # (Manual) 0.0 K/mm3 (0.0-0.1) 05/22/18 01:13 Metamyelocytes # 0.0 K/mm3 05/22/18 01:13 Myelocytes # 0.0 K/mm3 05/22/18 01:13 Promyelocytes # 0.0 K/mm3 05/22/18 01:13 Blast Cells # 0.0 K/mm3 05/22/18 01:13 WBC Morphology Not Reportable 05/22/18 01:13 Hypersegmented Neuts Not Reportable 05/22/18 01:13 Hyposegmented Neuts Not Reportable 05/22/18 01:13 Hypogranular Neuts Not Reportable 05/22/18 01:13 Smudge Cells Not Reportable 05/22/18 01:13 Toxic Granulation Not Reportable 05/22/18 01:13 Toxic Vacuolation Not Reportable 05/22/18 01:13 Dohle Bodies Not Reportable 05/22/18 01:13 Pelger-Huet Anomaly Not Reportable 05/22/18 01:13 Flaco Rods Not Reportable 05/22/18 01:13 Platelet Estimate Appears normal 05/22/18 01:13 Clumped Platelets Not Reportable 05/22/18 01:13 Plt Clumps, EDTA Not Reportable 05/22/18 01:13 Large Platelets Not Reportable 05/22/18 01:13 Giant Platelets Not Reportable 05/22/18 01:13 Platelet Satelliting Not Reportable 05/22/18 01:13 Plt Morphology Comment Not Reportable 05/22/18 01:13 RBC Morphology Normal 05/22/18 01:13 Dimorphic RBCs Not Reportable 05/22/18 01:13 Polychromasia Not Reportable 05/22/18 01:13 Hypochromasia Not Reportable 05/22/18 01:13 Poikilocytosis Not Reportable 05/22/18 01:13 Anisocytosis Not Reportable 05/22/18 01:13 Microcytosis Not Reportable 05/22/18 01:13 Macrocytosis Not Reportable 05/22/18 01:13 Spherocytes Not Reportable 05/22/18 01:13 Pappenheimer Bodies Not Reportable 05/22/18 01:13 Sickle Cells Not Reportable 05/22/18 01:13 Target Cells Not Reportable 05/22/18 01:13 Tear Drop Cells Not Reportable 05/22/18 01:13 Ovalocytes Not Reportable 05/22/18 01:13 Helmet Cells Not Reportable 05/22/18 01:13 [place] Bodies Not Reportable 05/22/18 01:13 Ennice Rings Not Reportable 05/22/18 01:13 [place] Cells Not Reportable 05/22/18 01:13 Bite Cells Not Reportable 05/22/18 01:13 Crenated Cell Not Reportable 05/22/18 01:13 Elliptocytes Not Reportable 05/22/18 01:13 Acanthocytes (Spur) Not Reportable 05/22/18 01:13 Rouleaux Not Reportable 05/22/18 01:13 Hemoglobin C Crystals Not Reportable 05/22/18 01:13 Schistocytes Not Reportable 05/22/18 01:13 Malaria parasites Not Reportable 05/22/18 01:13 Ulises Bodies Not Reportable 05/22/18 01:13 Hem Pathologist Commnt No 05/22/18 01:13 POC ABG pH 7.423 (7.35-7.45) 05/22/18 08:30 POC ABG pCO2 31.0 (35-45) L 05/22/18 08:30 POC ABG pO2 85 (80-105) 05/22/18 08:30 POC ABG HCO3 20.3 05/22/18 08:30 POC ABG Total CO2 21 05/22/18 08:30 POC ABG O2 Sat 97 05/22/18 08:30 POC ABG Base Excess -4 05/22/18 08:30 FiO2 35 % 05/22/18 08:30 Sodium 140 mmol/L (137-145) 05/23/18 05:10 Potassium 3.3 mmol/L (3.6-5.0) L 05/23/18 05:10 Chloride 103.1 mmol/L (98-107) 05/23/18 05:10 Carbon Dioxide 25 mmol/L (22-30) 05/23/18 05:10 Anion Gap 15 mmol/L 05/23/18 05:10 BUN 17 mg/dL (9-20) 05/23/18 05:10 Creatinine 1.1 mg/dL (0.8-1.5) 05/23/18 05:10 Estimated GFR > 60 ml/min 05/23/18 05:10 BUN/Creatinine Ratio 15 % 05/23/18 05:10 Glucose 87 mg/dL (75-100) 05/23/18 05:10 Lactic Acid 0.90 mmol/L (0.7-2.0) 05/22/18 16:50 Calcium 8.4 mg/dL (8.4-10.2) 05/23/18 05:10 Total Bilirubin 2.50 mg/dL (0.1-1.2) H 05/22/18 01:13 AST 21 units/L (5-40) 05/22/18 01:13 ALT 17 units/L (7-56) 05/22/18 01:13 Alkaline Phosphatase 112 units/L (35-129) 05/22/18 01:13 Ammonia 39.0 umol/L (25-60) 05/22/18 09:54 Troponin T < 0.010 ng/mL (0.00-0.029) 05/22/18 08:05 NT-Pro-B Natriuret Pep 218.6 pg/mL (0-900) 05/22/18 08:05 Total Protein 7.8 g/dL (6.3-8.2) 05/22/18 01:13 Albumin 3.6 g/dL (3.9-5) L 05/22/18 01:13 Albumin/Globulin Ratio 0.9 % 05/22/18 01:13 Lipase 31 units/L (13-60) 05/22/18 01:13 Urine Color Sia (Yellow) 05/22/18 Unknown Urine Turbidity Cloudy (Clear) 05/22/18 Unknown Urine pH 5.0 (5.0-7.0) 05/22/18 Unknown Ur Specific [place] 1.014 (1.003-1.030) 05/22/18 Unknown Urine Protein 100 mg/dl mg/dL (Negative) 05/22/18 Unknown Urine Glucose (UA) 50 mg/dL (Negative) 05/22/18 Unknown Urine Ketones Neg mg/dL (Negative) 05/22/18 Unknown Urine Blood Sm (Negative) 05/22/18 Unknown Urine Nitrite Neg (Negative) 05/22/18 Unknown Urine Bilirubin Sm (Negative) 05/22/18 Unknown Urine Ictotest Positive (Negative) 05/22/18 Unknown Urine Urobilinogen 4.0 mg/dL (<2.0) 05/22/18 Unknown Ur Leukocyte Esterase Mod (Negative) 05/22/18 Unknown Urine WBC (Auto) > 182.0 /HPF (0.0-6.0) H 05/22/18 Unknown Urine RBC (Auto) 14.0 /HPF (0.0-6.0) 05/22/18 Unknown U Epithel Cells (Auto) 5.0 /HPF (0-13.0) 05/22/18 Unknown Urine Bacteria (Auto) 3+ /HPF (Negative) 05/22/18 Unknown Urine WBC Clumps 3+ /HPF 05/22/18 Unknown Ur Transition Epith Cell 1 /HPF 05/22/18 Unknown Hyaline Casts 44 /LPF 05/22/18 Unknown Urine Mucus 3+ /HPF 05/22/18 Unknown Nutrition/Malnutrition Assess - Dietary Evaluation Nutrition/Malnutrition Findings: Nutrition Notes Start: 05/23/18 14:55 Freq: Status: Active Protocol: Document 05/23/18 14:55 RM (Rec: 05/23/18 15:08 RM [id number]) Nutrition Notes Need for Assessment generated from: MD 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 Consulted for " pt needs oral supplement." Frandy 18 points. Pt stated his appetite NEUROLOGICAL PHYSIOTHERAPIST was poor and that he could not eat solid foods d/t vomiting X 3 weeks. Stated he can keep down fluids . Also stated that his mouth hurts. Stated UBW was 235 lbs 1 month ago. Percent of energy/protein needs met: 0%/0% Burn Absent Trauma Absent #1 Nutrition Diagnosis Malnutrition Etiology vomiting, mouth pain As Evidenced by Signs and Symptoms pt statement that NEUROLOGICAL PHYSIOTHERAPIST he could not eat solid foods d/t vomiting X 3 weeks, 9.19% wt loss X 1 month Is patient on ventilator? No Is Patient Ambulatory and/or Out of Bed No REE-([facility]-confined to bed) 1616.116 Calculation Used for Recommendations [facility] Additional Notes Protein Needs: 97-116g (1-1.2g /kg) Fluid Needs: 1 ml/kcal Nutrition Intervention Change Diet Order: Full liquid Add Supplement/Snack (indicate name/kcal Ensure Enlive 1 daily /protein ) Provides kCal: 350 Provides Protein (gm) 20 Goal #1 Meet at least 75% of calorie and protein needs via PO and ONS intakes Anticipated Discharge Needs: Unable to determine at this time Follow-Up By: 05/25/18 Additional Comments Follow for PO and ONS intakes - Attestation Statement I have reviewed and agreed w/ Malnutrition eval & tx plan: Yes
[2018-05-23] MEDS: MORPHINE IV PRN ×2 (15:54→23:41)
--- NOTE | 2018-05-23 17:30 | Consultation ---
History of Present Illness - Reason for Consult Consult date: 05/23/18 - History of Present Illness 67-year-old male with a past medical history of prostate cancer in remission, GERD, hypertension, seizures, brain aneurysm, a previous cholecystectomy presents to the hospital with complaints of hiccups for 3-4 days. One episode of vomiting. Decreased appetite reported. Generalized weakness without fever. Patient had been increased urination with a small amount of output at a time. Denies pain. PT takes Dilantin for peti mal sz. A/P UTi mild hydro obs continue beltran as needed Past History Past Medical History: cancer, hypertension, seizures, other (brain aneurysm) Past Surgical History: Other (brain surgery) Social history: , smoking. denies: alcohol abuse, prescription drug abus e, IV drug use Family history: hypertension Medications and Allergies Allergies Allergy/AdvReac Type Severity Reaction Status Date / Time No Known Allergies Allergy Verified 05/10/18 08:56 Home Medications Medication Instructions Recorded Confirmed Last Taken Type Lisinopril 10 mg PO DAILY 12/20/13 05/22/18 02/16/15 History Dilantin 400 mg PO DAILY 05/22/18 05/22/18 Unknown History Gabapentin [Neurontin] 100 mg PO BID 05/22/18 05/22/18 Unknown History Metoprolol [Lopressor TAB] 50 mg PO BID 05/22/18 05/22/18 Unknown History Omeprazole 20 mg PO BID 05/22/18 05/22/18 Unknown History Tamsulosin HCl [Flomax] 0.4 mg PO DAILY 05/22/18 05/22/18 Unknown History levETIRAcetam [Keppra] 500 mg PO Q12H 05/22/18 05/22/18 Unknown History Active Meds: Active Medications Acetaminophen (Tylenol) 650 mg PO Q4H PRN PRN Reason: Pain MILD(1-3)/Fever >100.5/ROY Last Admin: 05/22/18 21:35 Dose: 650 mg Documented by: Albuterol (Proventil) 2.5 mg IH Q4HRT PRN PRN Reason: Shortness Of Breath Gabapentin (Neurontin) 100 mg PO BID GEOFFREY Last Admin: 05/23/18 11:10 Dose: 100 mg Documented by: Ceftriaxone Sodium (Rocephin/Ns 1 Gm/50 Ml) 1 gm in 50 mls @ 100 mls/hr IV Q24HR [facility]; Protocol Stop: 05/25/18 10:29 Last Admin: 05/23/18 09:24 Dose: 100 mls/hr Documented by: Levetiracetam (Keppra) 500 mg PO Q12H [facility] Last Admin: 05/23/18 11:11 Dose: 500 mg Documented by: Lidocaine HCl (Magic Mouthwash) 15 ml PO TID [facility] Last Admin: 05/23/18 13:03 Dose: 15 ml Documented by: Lisinopril (Zestril) 10 mg PO DAILY [facility] Last Admin: 05/23/18 11:12 Dose: Not Given Documented by: Metoprolol Tartrate (Lopressor) 50 mg PO BID [facility] Last Admin: 05/23/18 11:12 Dose: 50 mg Documented by: Morphine Sulfate (Morphine) 2 mg IV Q4H PRN PRN Reason: Pain, Moderate (4-6) Last Admin: 05/23/18 15:54 Dose: 2 mg Documented by: Nicotine (Habitrol) 21 mg TD QDAY [facility] Last Admin: 05/23/18 13:02 Dose: 21 mg Documented by: Ondansetron HCl (Zofran) 4 mg IV Q8H PRN PRN Reason: Nausea And Vomiting Pantoprazole Sodium (Protonix) 20 mg PO BID [facility] Last Admin: 05/23/18 11:19 Dose: Not Given Documented by: Phenytoin (Dilantin) 400 mg PO DAILY [facility] Last Admin: 05/23/18 11:36 Dose: 400 mg Documented by: Sodium Chloride (Sodium Chloride Flush Syringe 10 Ml) 10 ml IV BID [facility] Last Admin: 05/23/18 09:25 Dose: 10 ml Documented by: Sodium Chloride (Sodium Chloride Flush Syringe 10 Ml) 10 ml IV PRN PRN PRN Reason: LINE FLUSH Tamsulosin HCl (Flomax) 0.4 mg PO DAILY [facility] Last Admin: 05/23/18 11:10 Dose: 0.4 mg Documented by: Exam - Constitutional Vitals: Temp Pulse Resp BP Pulse Ox 101.0 F H 75 20 104/71 97 05/23/18 13:27 05/23/18 13:27 05/23/18 13:27 05/23/18 13:27 05/23/18 13:27 Results - Labs CBC & Chem 7: 0206/19 05:10 05/23/18 05:10 Labs: Abnormal lab results 05/23/18 05/23/18 Range/Units 05:10 05:10 WBC 11.7 H (4.5-11.0) K/mm3 Lymph % (Auto) 11.4 L (13.4-35.0) % [place] % (Auto) 12.4 H (0.0-7.3) % [place] # 1.5 H (0.0-0.8) K/mm3 Seg Neutrophils % 75.2 H (40.0-70.0) % Seg Neutrophils # 8.8 H (1.8-7.7) K/mm3 Potassium 3.3 L (3.6-5.0) mmol/L
[2018-05-23] MEDS: TYLENOL PO PRN (18:19)
[2018-05-24 06:13] LABS: Hemoglobin 12.7 gm/dl (11.8-15.2); Mean Corpuscular HGB Conc 34 % (32-34); Mean Corpuscular Volume 94 fl (84-94); Platelet Count 239 K/mm3 (140-440); Red Blood Count 4.06 M/mm3 (3.65-5.03); Red Cell Distribution Width 13.6 % (13.2-15.2)
[2018-05-24 06:42] LABS: BUN/Creatinine Ratio 16; Blood Urea Nitrogen 13 mg/dL (9-20); Calcium 8.6 mg/dL (8.4-10.2); Hemolysis Index 12
[2018-05-24] MEDS: MAGIC MOUTHWASH PO SCH ×3 (07:36→21:14)
[2018-05-24] MEDS: DILANTIN PO SCH (09:34)
[2018-05-24] MEDS: FLOMAX PO SCH (09:35)
[2018-05-24] MEDS: PROTONIX PO SCH ×2 (09:35→21:14)
[2018-05-24] MEDS: ROCEPHIN/NS 1 GM/50 ML 1 GM/50 ML BAG IV SCH (09:35)
[2018-05-24] MEDS: LOPRESSOR PO SCH ×2 (09:36→21:14)
[2018-05-24] MEDS: ZESTRIL PO SCH (09:37)
[2018-05-24] MEDS: SODIUM CHLORIDE FLUSH SYRINGE 10 ML IV SCH ×2 (09:37→21:15)
[2018-05-24] MEDS: HABITROL TD SCH (09:39)
[2018-05-24] MEDS: NEURONTIN PO SCH ×2 (10:10→21:14)
[2018-05-24] MEDS: KEPPRA PO SCH ×2 (10:10→23:47)
--- NOTE | 2018-05-24 10:30 | Progress Note ---
Assessment and Plan Assessment and plan: 67 YO Male with CaP, HTN, Seizure Disorder, GERD, Nicotine Dependence presents to ED for evaluation. Pt is confused and lethargic on admission. Pt provides limited history. Pt reports feeling tired. Pt transported to [facility] for further care and evaluation by family. The patient reported pain in his epigastric region, shortness of breath, cough and diaphoresis including feeling clammy. Pt denied nausea and vomiting during these episodes of pain. Pt seen and evaluated in ED and found to have UTI complicated by Sepsis as well as Encephalopathy. On reexamination he reports suprapubic pain. Sepsis Acute Pyelonephritis Acute Metabolic Encephalopathy Right Hydronephrosis Hiccups, now resolved Hypokalemia Seizure HTN Nicotine dependence unspecified, with withdrawal Plan - Continue supportive care - Urology consult noted, duration of beltran to be decided by Urology - Urine culture - Clinically improve. - Continue Abx and descalate based on Micro data. - DVT/GI prophy - Plan discussed with the patient and nursing staff - Anticipate discharge in am, History Interval history: Patient is seen today for: Sepsis with Hydronephrosis Seen and examined at bedside; 24hour events reviewed; nursing staff ; no adverse overnight events reported to me; No further pain today. Denies any chest pain, nausea, vomiting, diarrhea No fever noted blood pressure controlled Hospitalist Physical - Physical exam Narrative exam: VITAL SIGNS: Reviewed. GENERAL: The patient appeared chronically ill appearing. Vital signs as documented. HEAD: No signs of head trauma. EYES: Pupils are equal. Extraocular motions intact. EARS: Hearing grossly intact. MOUTH: Oropharynx is normal. NECK: No adenopathy, no JVD. CHEST: Chest with clear breath sounds bilaterally. No wheezes, rales, or rhonchi. CARDIAC: Regular rate and rhythm. S1 and S2, without murmurs, gallops, or rubs. VASCULAR: No Edema. Peripheral pulses normal and equal in all extremities. ABDOMEN: Soft, without detectable tenderness except suprapubic area. No sign of distention. No rebound or guarding, and no masses palpated. Bowel Sounds normal. MUSCULOSKELETAL: Good range of motion of all major joints. Extremities without clubbing, cyanosis or edema. NEUROLOGIC EXAM: Alert and oriented x 3. No focal sensory or strength deficits . Speech normal. Follows commands. PSYCHIATRIC: Mood normal. SKIN: No rash or lesions. - Constitutional Vitals: Temp Pulse Resp BP Pulse Ox 99.0 F 84 18 120/82 98 05/24/18 07:44 05/24/18 09:36 05/24/18 07:44 05/24/18 09:36 05/24/18 07:44 General appearance: Present: mild distress Results - Labs CBC & Chem 7: 05/24/18 05:14 05/24/18 05:14 Labs: Laboratory Last Values WBC 7.6 K/mm3 (4.5-11.0) 05/24/18 05:14 RBC 4.06 M/mm3 (3.65-5.03) 05/24/18 05:14 Hgb 12.7 gm/dl (11.8-15.2) 05/24/18 05:14 Hct 38.0 % (35.5-45.6) 05/24/18 05:14 MCV 94 fl (84-94) 05/24/18 05:14 MCH 31 pg (28-32) 05/24/18 05:14 MCHC 34 % (32-34) 05/24/18 05:14 RDW 13.6 % (13.2-15.2) 05/24/18 05:14 Plt Count 239 K/mm3 (140-440) 05/24/18 05:14 Lymph % (Auto) 11.4 % (13.4-35.0) L 05/23/18 05:10 [place] % (Auto) 12.4 % (0.0-7.3) H 05/23/18 05:10 Eos % (Auto) 0.8 % (0.0-4.3) 05/23/18 05:10 Baso % (Auto) 0.2 % (0.0-1.8) 05/23/18 05:10 Lymph # 1.3 K/mm3 (1.2-5.4) 05/23/18 05:10 [place] # 1.5 K/mm3 (0.0-0.8) H 05/23/18 05:10 Eos # 0.1 K/mm3 (0.0-0.4) 05/23/18 05:10 Baso # 0.0 K/mm3 (0.0-0.1) 05/23/18 05:10 Add Manual Diff Complete 05/22/18 01:13 Total Counted 100 05/22/18 01:13 Seg Neutrophils % 75.2 % (40.0-70.0) H 05/23/18 05:10 Seg Neuts % (Manual) 68.0 % (40.0-70.0) 05/22/18 01:13 Band Neutrophils % 5.0 % 05/22/18 01:13 Lymphocytes % (Manual) 8.0 % (13.4-35.0) L 05/22/18 01:13 Reactive Lymphs % (Man) 0 % 05/22/18 01:13 Monocytes % (Manual) 19.0 % (0.0-7.3) H 05/22/18 01:13 Eosinophils % (Manual) 0 % (0.0-4.3) 05/22/18 01:13 Basophils % (Manual) 0 % (0.0-1.8) 05/22/18 01:13 Metamyelocytes % 0 % 05/22/18 01:13 Myelocytes % 0 % 05/22/18 01:13 Promyelocytes % 0 % 05/22/18 01:13 Blast Cells % 0 % 05/22/18 01:13 Nucleated RBC % Not Reportable 05/22/18 01:13 Seg Neutrophils # 8.8 K/mm3 (1.8-7.7) H 05/23/18 05:10 Seg Neutrophils # Man 10.5 K/mm3 (1.8-7.7) H 05/22/18 01:13 Band Neutrophils # 0.8 K/mm3 05/22/18 01:13 Lymphocytes # (Manual) 1.2 K/mm3 (1.2-5.4) 05/22/18 01:13 Abs React Lymphs (Man) 0.0 K/mm3 05/22/18 01:13 Monocytes # (Manual) 2.9 K/mm3 (0.0-0.8) H 05/22/18 01:13 Eosinophils # (Manual) 0.0 K/mm3 (0.0-0.4) 05/22/18 01:13 Basophils # (Manual) 0.0 K/mm3 (0.0-0.1) 05/22/18 01:13 Metamyelocytes # 0.0 K/mm3 05/22/18 01:13 Myelocytes # 0.0 K/mm3 05/22/18 01:13 Promyelocytes # 0.0 K/mm3 05/22/18 01:13 Blast Cells # 0.0 K/mm3 05/22/18 01:13 WBC Morphology Not Reportable 05/22/18 01:13 Hypersegmented Neuts Not Reportable 05/22/18 01:13 Hyposegmented Neuts Not Reportable 05/22/18 01:13 Hypogranular Neuts Not Reportable 05/22/18 01:13 Smudge Cells Not Reportable 05/22/18 01:13 Toxic Granulation Not Reportable 05/22/18 01:13 Toxic Vacuolation Not Reportable 05/22/18 01:13 Dohle Bodies Not Reportable 05/22/18 01:13 Pelger-Huet Anomaly Not Reportable 05/22/18 01:13 Flaco Rods Not Reportable 05/22/18 01:13 Platelet Estimate Appears normal 05/22/18 01:13 Clumped Platelets Not Reportable 05/22/18 01:13 Plt Clumps, EDTA Not Reportable 05/22/18 01:13 Large Platelets Not Reportable 05/22/18 01:13 Giant Platelets Not Reportable 05/22/18 01:13 Platelet Satelliting Not Reportable 05/22/18 01:13 Plt Morphology Comment Not Reportable 05/22/18 01:13 RBC Morphology Normal 05/22/18 01:13 Dimorphic RBCs Not Reportable 05/22/18 01:13 Polychromasia Not Reportable 05/22/18 01:13 Hypochromasia Not Reportable 05/22/18 01:13 Poikilocytosis Not Reportable 05/22/18 01:13 Anisocytosis Not Reportable 05/22/18 01:13 Microcytosis Not Reportable 05/22/18 01:13 Macrocytosis Not Reportable 05/22/18 01:13 Spherocytes Not Reportable 05/22/18 01:13 Pappenheimer Bodies Not Reportable 05/22/18 01:13 Sickle Cells Not Reportable 05/22/18 01:13 Target Cells Not Reportable 05/22/18 01:13 Tear Drop Cells Not Reportable 05/22/18 01:13 Ovalocytes Not Reportable 05/22/18 01:13 Helmet Cells Not Reportable 05/22/18 01:13 [place] Bodies Not Reportable 05/22/18 01:13 [place] Rings Not Reportable 05/22/18 01:13 [place] Cells Not Reportable 05/22/18 01:13 Bite Cells Not Reportable 05/22/18 01:13 Crenated Cell Not Reportable 05/22/18 01:13 Elliptocytes Not Reportable 05/22/18 01:13 Acanthocytes (Spur) Not Reportable 05/22/18 01:13 Rouleaux Not Reportable 05/22/18 01:13 Hemoglobin C Crystals Not Reportable 05/22/18 01:13 Schistocytes Not Reportable 05/22/18 01:13 Malaria parasites Not Reportable 05/22/18 01:13 [place] Bodies Not Reportable 05/22/18 01:13 Hem Pathologist Commnt No 05/22/18 01:13 POC ABG pH 7.423 (7.35-7.45) 05/22/18 08:30 POC ABG pCO2 31.0 (35-45) L 05/22/18 08:30 POC ABG pO2 85 (80-105) 05/22/18 08:30 POC ABG HCO3 20.3 05/22/18 08:30 POC ABG Total CO2 21 05/22/18 08:30 POC ABG O2 Sat 97 05/22/18 08:30 POC ABG Base Excess -4 05/22/18 08:30 FiO2 35 % 05/22/18 08:30 Sodium 141 mmol/L (137-145) 05/24/18 05:14 Potassium 3.5 mmol/L (3.6-5.0) L 05/24/18 05:14 Chloride 105.8 mmol/L (98-107) 05/24/18 05:14 Carbon Dioxide 23 mmol/L (22-30) 05/24/18 05:14 Anion Gap 16 mmol/L 05/24/18 05:14 BUN 13 mg/dL (9-20) 05/24/18 05:14 Creatinine 0.8 mg/dL (0.8-1.5) 05/24/18 05:14 Estimated GFR > 60 ml/min 05/24/18 05:14 BUN/Creatinine Ratio 16 % 05/24/18 05:14 Glucose 78 mg/dL (75-100) 05/24/18 05:14 Lactic Acid 0.90 mmol/L (0.7-2.0) 05/22/18 16:50 Calcium 8.6 mg/dL (8.4-10.2) 05/24/18 05:14 Total Bilirubin 2.50 mg/dL (0.1-1.2) H 05/22/18 01:13 AST 21 units/L (5-40) 05/22/18 01:13 ALT 17 units/L (7-56) 05/22/18 01:13 Alkaline Phosphatase 112 units/L (35-129) 05/22/18 01:13 Ammonia 39.0 umol/L (25-60) 05/22/18 09:54 Troponin T < 0.010 ng/mL (0.00-0.029) 05/22/18 08:05 NT-Pro-B Natriuret Pep 218.6 pg/mL (0-900) 05/22/18 08:05 Total Protein 7.8 g/dL (6.3-8.2) 05/22/18 01:13 Albumin 3.6 g/dL (3.9-5) L 05/22/18 01:13 Albumin/Globulin Ratio 0.9 % 05/22/18 01:13 Lipase 31 units/L (13-60) 05/22/18 01:13 Urine Color Sia (Yellow) 05/22/18 Unknown Urine Turbidity Cloudy (Clear) 05/22/18 Unknown Urine pH 5.0 (5.0-7.0) 05/22/18 Unknown Ur Specific [place] 1.014 (1.003-1.030) 05/22/18 Unknown Urine Protein 100 mg/dl mg/dL (Negative) 05/22/18 Unknown Urine Glucose (UA) 50 mg/dL (Negative) 05/22/18 Unknown Urine Ketones Neg mg/dL (Negative) 05/22/18 Unknown Urine Blood Sm (Negative) 05/22/18 Unknown Urine Nitrite Neg (Negative) 05/22/18 Unknown Urine Bilirubin Sm (Negative) 05/22/18 Unknown Urine Ictotest Positive (Negative) 05/22/18 Unknown Urine Urobilinogen 4.0 mg/dL (<2.0) 05/22/18 Unknown Ur Leukocyte Esterase Mod (Negative) 05/22/18 Unknown Urine WBC (Auto) > 182.0 /HPF (0.0-6.0) H 05/22/18 Unknown Urine RBC (Auto) 14.0 /HPF (0.0-6.0) 05/22/18 Unknown U Epithel Cells (Auto) 5.0 /HPF (0-13.0) 05/22/18 Unknown Urine Bacteria (Auto) 3+ /HPF (Negative) 05/22/18 Unknown Urine WBC Clumps 3+ /HPF 05/22/18 Unknown Ur Transition Epith Cell 1 /HPF 05/22/18 Unknown Hyaline Casts 44 /LPF 05/22/18 Unknown Urine Mucus 3+ /HPF 05/22/18 Unknown Nutrition/Malnutrition Assess - Dietary Evaluation Nutrition/Malnutrition Findings: Nutrition Notes Start: 05/23/18 14:55 Freq: Status: Active Protocol: Document 05/23/18 14:55 RM (Rec: 05/23/18 15:08 RM [id number]) Nutrition Notes Need for Assessment 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 Consulted for " pt needs oral supplement." Frandy 18 points. 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 Stated he can keep down fluids . Also stated that his mouth hurts. Stated UBW was 235 lbs 1 month ago. Percent of energy/protein needs met: 0%/0% Burn Absent Trauma Absent #1 Nutrition Diagnosis Malnutrition Etiology vomiting, mouth pain As Evidenced by Signs and Symptoms pt statement that LEGAL ACTIVITY ADJUDICATOR he could not eat solid foods d/t vomiting X 3 weeks, 9.19% wt loss X 1 month Is patient on ventilator? No Is Patient Ambulatory and/or Out of Bed No REE-([facility]-confined to bed) [phone] Calculation Used for Recommendations [facility] Additional Notes Protein Needs: 97-116g (1-1.2g /kg) Fluid Needs: 1 ml/kcal Nutrition Intervention Change Diet Order: Full liquid Add Supplement/Snack (indicate name/kcal Ensure Enlive 1 daily /protein ) Provides kCal: 350 Provides Protein (gm) 20 Goal #1 Meet at least 75% of calorie and protein needs via PO and ONS intakes Anticipated Discharge Needs: Unable to determine at this time Follow-Up By: 05/25/18 Additional Comments Follow for PO and ONS intakes
[2018-05-24] MEDS ORDERED: MILK OF MAGNESIA PO PRN (12:50)
[2018-05-25] MEDS: MAGIC MOUTHWASH PO SCH ×2 (07:35→13:36)
--- NOTE | 2018-05-25 08:16 | Discharge Summary ---
Providers - Providers Date of Admission: 05/22/18 12:20 Attending physician: CANDY COLBY MD 05/23/18 10:59 Consult to Dietitian/Nutrition [CONS] Routine Physician Instructions: Reason For Exam: Nutritional concern Reason for Consult: Pt needs oral supplement 05/23/18 15:46 Consult to Physician [CONS] Routine Comment: called office/fady left mess. Consulting Provider: JOSIAS MORELOS Physician Instructions: Reason For Exam: MILD HYDRONEPHROSIS 05/25/18 06:19 Physical Therapy Evaluation and Treat [CONS] Routine Comment: Reason For Exam: Balance issues/Safety Awareness Mode of Transport?: Wheelchair Weight bearing status?: Full wt bearing Assistive devices?: No Primary care physician: ABUNDIO CARABALLO Hospitalization Reason for admission: spesis Condition: Stable Hospital course: 67 YO Male with CaP, HTN, Seizure Disorder, GERD, Nicotine Dependence presents to ED for evaluation. Pt is confused and lethargic on admission. Pt provides limited history. Pt reports feeling tired. Pt transported to [facility] for further care and evaluation by family. The patient reported pain in his epigastric region, shortness of breath, cough and diaphoresis including feeling clammy. Pt denied nausea and vomiting during these episodes of pain. Pt seen and evaluated in ED and found to have UTI complicated by Sepsis as well as En cephalopathy. On reexamination he reports suprapubic pain. patient was treated for pyelonephritis and Hydronephrosis. Patient had Garcia that was subsequently discontinued with bladder training. His flomax which he had not taken for some weeks was restarted. He was also given counselling on need to quit tobacco use adn was started on nicotine patch with education on not smoking while wearing the patch Sepsis Acute Pyelonephritis Acute Metabolic Encephalopathy Right Hydronephrosis Hiccups, now resolved Hypokalemia Seizure HTN Nicotine dependence unspecified, with withdrawal Disposition: DC/TX-06 HOME UNDER HOME [facility] Time spent for discharge: 35 MINS Core Measure Documentation - Palliative Care Palliative Care/ Comfort Measures: Not Applicable - Core Measures Any of the following diagnoses?: none Exam - Physical Exam Narrative exam: VITAL SIGNS: Reviewed. GENERAL: The patient appeared chronically ill appearing. Vital signs as documen eduarda. HEAD: No signs of head trauma. EYES: Pupils are equal. Extraocular motions intact. EARS: Hearing grossly intact. MOUTH: Oropharynx is normal. NECK: No adenopathy, no JVD. CHEST: Chest with clear breath sounds bilaterally. No wheezes, rales, or rhonchi. CARDIAC: Regular rate and rhythm. S1 and S2, without murmurs, gallops, or rubs. VASCULAR: No Edema. Peripheral pulses normal and equal in all extremities. ABDOMEN: Soft, without detectable tenderness except suprapubic area. No sign of distention. No rebound or guarding, and no masses palpated. Bowel Sounds normal. MUSCULOSKELETAL: Good range of motion of all major joints. Extremities without clubbing, cyanosis or edema. NEUROLOGIC EXAM: Alert and oriented x 3. No focal sensory or strength deficits. Speech normal. Follows commands. PSYCHIATRIC: Mood normal. SKIN: No rash or lesions. - Constitutional Vitals: Temp Pulse Resp BP Pulse Ox 97.5 F L 70 20 130/82 93 05/25/18 08:01 05/25/18 08:01 05/25/18 08:01 05/25/18 08:01 05/25/18 08:01 Plan Activity: advance as tolerated, fall precautions Diet: low fat Special Instructions: record daily weights, record daily BP diary Follow up with: ABUNDIO CARABALLO MD [Primary Care Provider] - 7 Days JOSIAS MORELOS MD [Staff Physician] - 7 Days Prescriptions: levoFLOXacin [Levaquin TAB] 500 mg PO QDAY #5 tablet Nicotine [Habitrol] 21 mg TD QDAY #14 patch Tamsulosin HCl [Flomax] 0.4 mg PO DAILY #30 capsule
[2018-05-25] MEDS: NEURONTIN PO SCH (09:38)
[2018-05-25] MEDS: DILANTIN PO SCH (09:38)
[2018-05-25] MEDS: ROCEPHIN/NS 1 GM/50 ML 1 GM/50 ML BAG IV SCH (09:39)
[2018-05-25] MEDS: FLOMAX PO SCH (09:40)
[2018-05-25] MEDS: PROTONIX PO SCH (09:40)
[2018-05-25] MEDS: HABITROL TD SCH (09:40)
[2018-05-25] MEDS: ZESTRIL PO SCH (09:42)
[2018-05-25] MEDS: SODIUM CHLORIDE FLUSH SYRINGE 10 ML IV SCH (09:44)
[2018-05-25] MEDS: LOPRESSOR PO SCH (09:58)
[2018-05-25] MEDS: KEPPRA PO SCH (09:59)
[2018-05-25 14:36] VITALS: BP 125/77
== END 2018-05-25 17:45 | disposition home health service (06) | DRG 871 ==
LOC: ED 00:08 → 2B-ACE 12:20
PROVIDERS: ADMIT Internal Medicine; ATTEND Internal Medicine
PROC: 4A033R1 Measurement of Arterial Saturation, Peripheral, Percutaneous Approach (ICD-10-PCS; principal; 2018-05-22)
DX: A41.9 Sepsis, unspecified organism (principal); G93.41 Metabolic encephalopathy; N10 Acute pyelonephritis; N13.30 Unspecified hydronephrosis; F17.213 Nicotine dependence, cigarettes, with withdrawal; I10 Essential (primary) hypertension; G40.909 Epilepsy, unspecified, not intractable, without status epilepticus; K21.9 Gastro-esophageal reflux disease without esophagitis; F17.200 Nicotine dependence, unspecified, uncomplicated; E87.6 Hypokalemia; G62.9 Polyneuropathy, unspecified; R06.6 Hiccough; Z71.6 Tobacco abuse counseling; Z85.46 Personal history of malignant neoplasm of prostate; Z90.49 Acquired absence of other specified parts of digestive tract; Z82.49 Family history of ischemic heart disease and other diseases of the circulatory system; Z79.899 Other long term (current) drug therapy
CPT/HCPCS: 36415; 70450; 71045; 71275; 74177; 80048; 80053; 81001; 82140; 82803; 83690; 83880; 84484; 85007; 85025; 85027; 87040; 87086; 94760; 99406; G0378; J0696; J2270; J3230; J3370; J7030; J7040; Q9967

== ENCOUNTER 2020-12-03 04:22 | Emergency (ER) | payer MEDICARE ==
[2020-12-03 05:16] VITALS: BP 125/79
--- NOTE | 2020-12-03 07:04 | Cat Scan Report ---
CT HEAD WITHOUT CONTRAST INDICATION / CLINICAL INFORMATION: Hx of aneurysm and headache. TECHNIQUE: All CT scans at this location are performed using CT dose reduction for ALARA by means of automated e xposure control. COMPARISON: Head CT 05/23/2018 FINDINGS: HEMORRHAGE: None. EXTRA-AXIAL SPACES: Normal in size and morphology for the patient's age. VENTRICULAR SYSTEM: Expected dilatation left occipital horn from the adjacent encephalomalacia left p arietal lobe CEREBRAL PARENCHYMA: Encephalomalacia left parietal lobe with aneurysm clip left sylvian fissure and left posterior parietal lobe again noted moderate periventricular microangiopathy again noted. Modera te cerebral atrophy, unchanged MIDLINE SHIFT OR HERNIATION: None. CEREBELLUM / BRAINSTEM: No significant abnormality. ORBITS: Normal as visualized. SOFT TISSUES of HEAD: No significant abnormality. CALVARIUM: Left craniectomy defect again noted, unchanged PARANASAL SINUSES / MASTOID AIR CELLS: Normal as visualized. ADDITIONAL FINDINGS: None. IMPRESSION: 1. No intracranial bleed or large acute territorial infarction 2. Postsurgical change with left parietal encephalomalacia from aneurysm clip, unchanged 3. Stable moderate cerebral atrophy and microangiopathy Signer Name: Sukumar Maya MD Signed: 12/03/2020 6:59 AM Workstation Name: [id number]
[2020-12-03 07:24] LABS: Basophils % (Auto) 0.3 % (0.0-1.8); Eosinophils # (Auto) 0.2 K/mm3 (0.0-0.4); Eosinophils % (Auto) 2.3 % (0.0-4.3); Hemoglobin 16.4 gm/dl (11.8-15.2); Lymphocytes # (Auto) 2.8 K/mm3 (1.2-5.4); Lymphocytes % (Auto) 39.1 % (13.4-35.0); Mean Corpuscular HGB Conc 34 % (32-34); Mean Corpuscular Volume 98 fl (84-94); Monocytes # (Auto) 0.6 K/mm3 (0.0-0.8); Monocytes % (Auto) 7.9 % (0.0-7.3); Platelet Count 209 K/mm3 (140-440); Red Blood Count 4.93 M/mm3 (3.65-5.03)
[2020-12-03 07:39] LABS: BUN/Creatinine Ratio 10; Blood Urea Nitrogen 8 mg/dL (9-20); Calcium 9.8 mg/dL (8.4-10.2); Hemolysis Index 37
--- NOTE | 2020-12-03 11:40 | Emergency Department Report ---
ED Headache HPI - General Chief Complaint: Headache Stated Complaint: HEADACHE Time Seen by Provider: 12/03/20 11:25 Source: patient Exam Limitations: no limitations - History of Present Illness Initial Comments: Chief complaint: Headache HPI: This is a 70-year-old male with history of hypertension, seizure disorder, GERD, intracranial aneurysm status post clipping, nicotine dependence who presents with gradual onset of left temporal occipital headache. He has had a history of several aneurysms. He denies blurry vision, vomiting, neck pain. He drove his personal auto to the emergency department. Patient was prescribed PHarbetol by his [facility] primary physician for headache. Timing/Duration: other (2 days) Quality: mild, other (Left parieto-occipital region) Head Injury Location: occipital, parietal Recent Head Trauma: frequent headaches Associated Symptoms: denies symptoms Allergies/Adverse Reactions: Allergies No Known Allergies Allergy (Verified 05/10/18 08:56) Home Medications: Ambulatory Orders lisinopriL [Lisinopril] 10 mg PO DAILY 12/20/13 Dilantin 400 mg PO DAILY 05/22/18 Gabapentin 100 mg PO BID 05/22/18 Metoprolol [Lopressor TAB] 50 mg PO BID 05/22/18 Omeprazole 20 mg PO BID 05/22/18 levETIRAcetam [Keppra] 500 mg PO Q12H 05/22/18 Nicotine [Habitrol] 21 mg TD QDAY #14 patch 05/25/18 Tamsulosin HCl [Flomax] 0.4 mg PO DAILY #30 capsule 05/25/18 levoFLOXacin [Levaquin TAB] 500 mg PO QDAY #5 tablet 05/25/18 ED Review of Systems ROS: Stated complaint: HEADACHE Other details as noted in HPI Comment: All other systems reviewed and negative Constitutional: denies: fever Respiratory: denies: shortness of breath Cardiovascular: denies: chest pain Gastrointestinal: denies: abdominal pain, nausea, vomiting Neurological: headache. denies: numbness, paresthesias ED Past Medical Hx - Past Medical History Previous Medical History?: Yes Hx Hypertension: Yes Hx Heart Attack/AMI: No Hx GERD: Yes Hx Seizures: Yes Additional medical history: Brain aneurysm patient states he had 7 aneurysms, neuropathy secondary to chemotherapy, prostate cancer status post radiation - Surgical History Past Surgical History?: Yes Hx Cholecystectomy: Yes Additional Surgical History: Brain - Social History Smoking Status: Current Every Day Smoker Substance Use Type: None - Medications Home Medications: Home Medications Medication Instructions Recorded Confirmed Last Taken Type lisinopriL [Lisinopril] 10 mg PO DAILY 12/20/13 05/22/18 02/16/15 History Dilantin 400 mg PO DAILY 05/22/18 05/22/18 Unknown History Gabapentin 100 mg PO BID 05/22/18 05/22/18 Unknown History Metoprolol [Lopressor TAB] 50 mg PO BID 05/22/18 05/22/18 Unknown History Omeprazole 20 mg PO BID 05/22/18 05/22/18 Unknown History levETIRAcetam [Keppra] 500 mg PO Q12H 05/22/18 05/22/18 Unknown History Nicotine [Habitrol] 21 mg TD QDAY #14 patch 05/25/18 Unknown Rx Tamsulosin HCl [Flomax] 0.4 mg PO DAILY #30 capsule 05/25/18 Unknown Rx levoFLOXacin [Levaquin TAB] 500 mg PO QDAY #5 tablet 05/25/18 Unknown Rx ED Physical Exam - General Limitations: No Limitations General appearance: alert, in no apparent distress - Head Head exam: Present: atraumatic, normocephalic, other (Left-sided craniotomy scar) - Eye Eye exam: Present: normal appearance - ENT ENT exam: Present: mucous membranes moist - Neck Neck exam: Present: normal inspection - Respiratory Respiratory exam: Present: normal lung sounds bilaterally. Absent: respiratory distress - Cardiovascular Cardiovascular Exam: Present: regular rate, normal rhythm, normal heart sounds. Absent: systolic murmur, diastolic murmur, rubs, gallop - GI/Abdominal GI/Abdominal exam: Present: soft, normal bowel sounds. Absent: distended, tenderness, guarding, rebound - Rectal Rectal exam: Present: deferred - Extremities Exam Extremities exam: Present: normal inspection - Back Exam Back exam: Present: normal inspection - Neurological Exam Neurological exam: Present: alert, oriented X3, other (Steady gait with walker) - Expanded Neurological Exam Expanded Patient oriented to: Present: person, place, time Best Eye Response (Tg): (4) open spontaneously Best Motor Response (Tg): (6) obeys commands Best Verbal Response ([place]): (5) oriented [place] Total: 15 - Psychiatric Psychiatric exam: Present: normal affect, normal mood - Skin Skin exam: Present: warm, dry, intact, normal color. Absent: rash ED Course Vital Signs 12/03/20 04:59 Temperature 98.0 F Pulse Rate 61 Respiratory 20 Rate Blood Pressure 125/79 O2 Sat by Pulse 97 Oximetry ED Medical Decision Making - Lab Data Result diagrams: 12/03/20 07:05 12/03/20 07:05 - Radiology Data Radiology results: report reviewed interpreted by me: Patient Name: CEASAR NGUYEN Gender: Male Date of : 1950 Referring Provider: ANN WOLFE Organization: [facility] Accession Number: [id number] Requested Date: December 03, 2020 06:42 Report Status: Final Requested Procedure: 1 Procedure Description: CT head/brain wo con Modality: CT Findings Reporting MD: Sukumar Maya Dictation Time: December 03, 2020 05:59 Geodetic Engineer: Not available Cyber Analyst Date: CT HEAD WITHOUT CONTRAST INDICATION / CLINICAL INFORMATION: Hx of aneurysm and headache. TECHNIQUE: All CT scans at this location are performed using CT dose reduction for ALARA by means of automated exposure control. COMPARISON: Head CT 05/23/2018 FINDINGS: HEMORRHAGE: None. EXTRA-AXIAL SPACES: Normal in size and morphology for the patient's age. VENTRICULAR SYSTEM: Expected dilatation left occipital horn from the adjacent encephalomalacia left parietal lobe CEREBRAL PARENCHYMA: Encephalomalacia left parietal lobe with aneurysm clip left sylvian fissure and left posterior parietal lobe again noted moderate periventricular microangiopathy again noted. Moderate cerebral atrophy, unchanged MIDLINE SHIFT OR HERNIATION: None. CEREBELLUM / BRAINSTEM: No significant abnormality. ORBITS: Normal as visualized. SOFT TISSUES of HEAD: No significant abnormality. CALVARIUM: Left craniectomy defect again noted, unchanged PARANASAL SINUSES / MASTOID AIR CELLS: Normal as visualized. ADDITIONAL FINDINGS: None. IMPRESSION: 1. No intracranial bleed or large acute territorial infarction 2. Postsurgical change with left parietal encephalomalacia from aneurysm clip, unchanged 3. Stable moderate cerebral atrophy and microangiopathy Signer Name: Sukumar Maya MD Signed: 12/03/2020 5:59 AM Workstation Name: [id number] - Medical Decision Making Recurrent tension headache for 2 days with no evidence of intracranial hemorrhage. Patient's neurologic intact. I do not suspect ruptured aneurysm sentinel bleed. No indication of CVA or meningitis. CT scan without hemorrhage Critical care attestation.: If time is entered above; I have spent that time in minutes in the direct care of this critically ill patient, excluding procedure time. ED Disposition Clinical Impression: Headache Disposition: 01 HOME / SELF CARE / HOMELESS Is pt being admited?: No Does the pt Need Aspirin: No Condition: Stable
[2020-12-03] MEDS ORDERED: ACETAMINOPHEN 500 MG TAB PO ONE (11:43)
== END 2020-12-03 12:05 | disposition home or self-care (01) ==
LOC: ED 04:22
DX: R51.9 Headache, unspecified (principal); I10 Essential (primary) hypertension; K21.9 Gastro-esophageal reflux disease without esophagitis; R56.9 Unspecified convulsions; I67.1 Cerebral aneurysm, nonruptured; Z85.9 Personal history of malignant neoplasm, unspecified; Z98.890 Other specified postprocedural states; F17.200 Nicotine dependence, unspecified, uncomplicated
CPT/HCPCS: 36415; 70450; 80048; 85025; 99284

== ENCOUNTER 2021-04-25 20:54 | Inpatient (IN) | payer MEDICARE ==
[2021-04-25] MEDS ORDERED: LACTATED RINGERS 1000 ML IV SOLN IV ONE (21:00)
--- NOTE | 2021-04-25 21:00 | Emergency Department Report ---
ED Altered Mental Status HPI - General Time Seen by Provider: 04/25/21 20:59 - History of Present Illness Initial Comments: Patient was brought in by EMS secondary to altered mental status. Family called because patient was confused and slow to respond. EMS and another once a day for a lift assist. No mention was made of his altered mental status. When they got called tonight, EMS crew noted that the patient was confused and slow to respond. They brought him here. They noticed that he also had a fever. There has been trouble breathing that they have noted. The patient and family did not report any vomiting or diarrhea. There was no complaint regarding injury or t rauma other than the lift assist earlier today. - Related Data Home Medications Medication Instructions Recorded Confirmed Last Taken lisinopriL [Lisinopril] 10 mg PO DAILY 12/20/13 05/22/18 02/16/15 Dilantin 400 mg PO DAILY 05/22/18 05/22/18 Unknown Gabapentin 100 mg PO BID 05/22/18 05/22/18 Unknown Metoprolol [Lopressor TAB] 50 mg PO BID 05/22/18 05/22/18 Unknown Omeprazole 20 mg PO BID 05/22/18 05/22/18 Unknown levETIRAcetam [Keppra] 500 mg PO Q12H 05/22/18 05/22/18 Unknown Previous Rx's Medication Instructions Recorded Last Taken Type Nicotine [Habitrol] 21 mg TD QDAY #14 patch 05/25/18 Unknown Rx Tamsulosin HCl [Flomax] 0.4 mg PO DAILY #30 capsule 05/25/18 Unknown Rx levoFLOXacin [Levaquin TAB] 500 mg PO QDAY #5 tablet 05/25/18 Unknown Rx Allergies Allergy/AdvReac Type Severity Reaction Status Date / Time No Known Allergies Allergy Verified 05/10/18 08:56 ED Review of Systems ROS: Stated complaint: Other details as noted in HPI Comment: Unobtainable due to pts medical conditions (Altered mental status) ED Past Medical Hx - Past Medical History Hx Hypertension: Yes Hx Heart Attack/AMI: No Hx GERD: Yes Hx Seizures: Yes Additional medical history: Brain aneurysm patient states he had 7 aneurysms, neuropathy secondary to chemotherapy, prostate cancer status post radiation - Surgical History Hx Cholecystectomy: Yes Additional Surgical History: Brain - Family History Family history: other (Cannot be obtained for the patient secondary to altered mental status) - Social History Smoking Status: Current Every Day Smoker Substance Use Type: None - Medications Home Medications: Home Medications Medication Instructions Recorded Confirmed Last Taken Type lisinopriL [Lisinopril] 10 mg PO DAILY 12/20/13 05/22/18 02/16/15 History Dilantin 400 mg PO DAILY 05/22/18 05/22/18 Unknown History Gabapentin 100 mg PO BID 05/22/18 05/22/18 Unknown History Metoprolol [Lopressor TAB] 50 mg PO BID 05/22/18 05/22/18 Unknown History Omeprazole 20 mg PO BID 05/22/18 05/22/18 Unknown History levETIRAcetam [Keppra] 500 mg PO Q12H 05/22/18 05/22/18 Unknown History Nicotine [Habitrol] 21 mg TD QDAY #14 patch 05/25/18 Unknown Rx Tamsulosin HCl [Flomax] 0.4 mg PO DAILY #30 capsule 05/25/18 Unknown Rx levoFLOXacin [Levaquin TAB] 500 mg PO QDAY #5 tablet 05/25/18 Unknown Rx ED Physical Exam - General Limitations: Altered Mental Status, Other (Pulse ox was noted and hypoxic. This improves with treatment.) General appearance: alert, in no apparent distress, obese - Head Head exam: Present: atraumatic, normocephalic - Eye Eye exam: Present: normal appearance, EOMI. Absent: scleral icterus - ENT ENT exam: Present: mucous membranes dry, normal external ear exam - Neck Neck exam: Present: normal inspection. Absent: meningismus - Respiratory Respiratory exam: Present: respiratory distress (Mild), rhonchi (Bilateral) - Cardiovascular Cardiovascular Exam: Present: regular rate, normal rhythm - GI/Abdominal GI/Abdominal exam: Present: soft. Absent: distended, tenderness - Extremities Exam Extremities exam: Present: normal capillary refill - Back Exam Back exam: Absent: CVA tenderness (R), CVA tenderness (L) - Neurological Exam Neurological exam: Present: alert, altered (Confused. Patient's answers are variable but inconsistent with questions.) - Psychiatric Psychiatric exam: Absent: agitated - Skin Skin exam: Present: warm, dry ED Course Vital Signs 04/26/21 04/26/21 04/26/21 00:12 00:15 00:31 Temperature 100.1 F H Pulse Rate 125 H 114 H 112 H Respiratory 21 48 H 41 H Rate Blood Pressure 175/107 164/98 Blood Pressure 175/107 [Right] O2 Sat by Pulse 96 97 96 Oximetry 04/26/21 01:19 Temperature Pulse Rate Respiratory 22 Rate Blood Pressure Blood Pressure [Right] O2 Sat by Pulse Oximetry - Reevaluation(s) Reevaluation #1: 04/25/21 20:59 EMS was met upon arrival. Sepsis protocol was started. 04/25/21 21:05 Old records noted. Reevaluation #2: 04/26/21 01:07 Urine is pending. Reevaluation #3: 04/26/21 03:43 Work-up was completed and the patient was admitted - Lab Data Result diagrams: 04/25/21 21:17 04/25/21 21:17 Lab Results 04/25/21 04/25/21 04/25/21 Range/Units 21:17 21:17 21:17 WBC 10.8 (4.5-11.0) K/mm3 RBC 5.05 H (3.65-5.03) M/mm3 Hgb 16.2 H (11.8-15.2) gm/dl Hct 48.2 H (35.5-45.6) % MCV 96 H (84-94) fl MCH 32 (28-32) pg MCHC 34 (32-34) % RDW 14.4 (13.2-15.2) % Plt Count 163 (140-440) K/mm3 Lymph % (Auto) 5.1 L (13.4-35.0) % [place] % (Auto) 8.7 H (0.0-7.3) % Eos % (Auto) 0.1 (0.0-4.3) % Baso % (Auto) 0.2 (0.0-1.8) % Lymph # (Auto) 0.5 L (1.2-5.4) K/mm3 [place] # (Auto) 0.9 H (0.0-0.8) K/mm3 Eos # (Auto) 0.0 (0.0-0.4) K/mm3 Baso # (Auto) 0.0 (0.0-0.1) K/mm3 Seg Neutrophils % 85.9 H (40.0-70.0) % Seg Neutrophils # 9.3 H (1.8-7.7) K/mm3 D-Dimer 485.00 H (0-234) ng/mlDDU Sodium (137-145) mmol/L Potassium (3.6-5.0) mmol/L Chloride (98-107) mmol/L Carbon Dioxide (22-30) mmol/L Anion Gap mmol/L BUN (9-20) mg/dL Creatinine (0.8-1.3) mg/dL Estimated GFR ml/min BUN/Creatinine Ratio % Glucose (75-100) mg/dL Lactic Acid (0.7-2.0) mmol/L Calcium (8.4-10.2) mg/dL Total Bilirubin (0.1-1.2) mg/dL AST (5-40) units/L ALT (7-56) units/L Alkaline Phosphatase (35-129) units/L Lactate Dehydrogenase 368 H (91-180) units/L Troponin T (0.00-0.029) ng/mL C-Reactive Protein 2.40 H (0.00-1.30) mg/dL Total Protein (6.3-8.2) g/dL Albumin (3.9-5) g/dL Albumin/Globulin Ratio % Urine Color (Yellow) Urine Turbidity (Clear) Urine pH (5.0-7.0) Ur Specific [place] (1.003-1.030) Urine Protein (Negative) mg/dL Urine Glucose (UA) (Negative) mg/dL Urine Ketones (Negative) mg/dL Urine Blood (Negative) Urine Nitrite (Negative) Urine Bilirubin (Negative) Urine Ictotest (Negative) Urine Urobilinogen (<2.0) mg/dL Ur Leukocyte Esterase (Negative) Urine WBC (Auto) (0.0-6.0) /HPF Urine RBC (Auto) (0.0-6.0) /HPF U Epithel Cells (Auto) (0-13.0) /HPF Hyaline Casts /LPF Urine Mucus /HPF 04/25/21 04/25/21 04/26/21 Range/Units 21:17 21:17 00:15 WBC (4.5-11.0) K/mm3 RBC (3.65-5.03) M/mm3 Hgb (11.8-15.2) gm/dl Hct (35.5-45.6) % MCV (84-94) fl MCH (28-32) pg MCHC (32-34) % RDW (13.2-15.2) % Plt Count (140-440) K/mm3 Lymph % (Auto) (13.4-35.0) % [place] % (Auto) (0.0-7.3) % Eos % (Auto) (0.0-4.3) % Baso % (Auto) (0.0-1.8) % Lymph # (Auto) (1.2-5.4) K/mm3 [place] # (Auto) (0.0-0.8) K/mm3 Eos # (Auto) (0.0-0.4) K/mm3 Baso # (Auto) (0.0-0.1) K/mm3 Seg Neutrophils % (40.0-70.0) % Seg Neutrophils # (1.8-7.7) K/mm3 D-Dimer (0-234) ng/mlDDU Sodium 140 (137-145) mmol/L Potassium 4.2 (3.6-5.0) mmol/L Chloride 103.9 (98-107) mmol/L Carbon Dioxide 20 L (22-30) mmol/L Anion Gap 20 mmol/L BUN 11 (9-20) mg/dL Creatinine 0.8 (0.8-1.3) mg/dL Estimated GFR > 60 ml/min BUN/Creatinine Ratio 14 % Glucose 177 H (75-100) mg/dL Lactic Acid 1.70 (0.7-2.0) mmol/L Calcium 9.2 (8.4-10.2) mg/dL Total Bilirubin 1.60 H (0.1-1.2) mg/dL AST 30 (5-40) units/L ALT 21 (7-56) units/L Alkaline Phosphatase 166 H (35-129) units/L Lactate Dehydrogenase 454 H (91-180) units/L Troponin T < 0.010 (0.00-0.029) ng/mL C-Reactive Protein 2.30 H (0.00-1.30) mg/dL Total Protein 7.8 (6.3-8.2) g/dL Albumin 3.8 L (3.9-5) g/dL Albumin/Globulin Ratio 1.0 % Urine Color Sia (Yellow) Urine Turbidity Clear (Clear) Urine pH 6.0 (5.0-7.0) Ur Specific [place] 1.020 (1.003-1.030) Urine Protein 100 mg/dl (Negative) mg/dL Urine Glucose (UA) 50 (Negative) mg/dL Urine Ketones Neg (Negative) mg/dL Urine Blood Mod (Negative) Urine Nitrite Neg (Negative) Urine Bilirubin Sm (Negative) Urine Ictotest Negative (Negative) Urine Urobilinogen 4.0 (<2.0) mg/dL Ur Leukocyte Esterase Neg (Negative) Urine WBC (Auto) 12.0 H (0.0-6.0) /HPF Urine RBC (Auto) 16.0 (0.0-6.0) /HPF U Epithel Cells (Auto) 5.0 (0-13.0) /HPF Hyaline Casts 20 /LPF Urine Mucus Few /HPF 04/26/21 Range/Units 01:56 WBC (4.5-11.0) K/mm3 RBC (3.65-5.03) M/mm3 Hgb (11.8-15.2) gm/dl Hct (35.5-45.6) % MCV (84-94) fl MCH (28-32) pg MCHC (32-34) % RDW (13.2-15.2) % Plt Count (140-440) K/mm3 Lymph % (Auto) (13.4-35.0) % [place] % (Auto) (0.0-7.3) % Eos % (Auto) (0.0-4.3) % Baso % (Auto) (0.0-1.8) % Lymph # (Auto) (1.2-5.4) K/mm3 [place] # (Auto) (0.0-0.8) K/mm3 Eos # (Auto) (0.0-0.4) K/mm3 Baso # (Auto) (0.0-0.1) K/mm3 Seg Neutrophils % (40.0-70.0) % Seg Neutrophils # (1.8-7.7) K/mm3 D-Dimer (0-234) ng/mlDDU Sodium (137-145) mmol/L Potassium (3.6-5.0) mmol/L Chloride (98-107) mmol/L Carbon Dioxide (22-30) mmol/L Anion Gap mmol/L BUN (9-20) mg/dL Creatinine (0.8-1.3) mg/dL Estimated GFR ml/min BUN/Creatinine Ratio % Glucose (75-100) mg/dL Lactic Acid 1.50 (0.7-2.0) mmol/L Calcium (8.4-10.2) mg/dL Total Bilirubin (0.1-1.2) mg/dL AST (5-40) units/L ALT (7-56) units/L Alkaline Phosphatase (35-129) units/L Lactate Dehydrogenase (91-180) units/L Troponin T (0.00-0.029) ng/mL C-Reactive Protein (0.00-1.30) mg/dL Total Protein (6.3-8.2) g/dL Albumin (3.9-5) g/dL Albumin/Globulin Ratio % Urine Color (Yellow) Urine Turbidity (Clear) Urine pH (5.0-7.0) Ur Specific [place] (1.003-1.030) Urine Protein (Negative) mg/dL Urine Glucose (UA) (Negative) mg/dL Urine Ketones (Negative) mg/dL Urine Blood (Negative) Urine Nitrite (Negative) Urine Bilirubin (Negative) Urine Ictotest (Negative) Urine Urobilinogen (<2.0) mg/dL Ur Leukocyte Esterase (Negative) Urine WBC (Auto) (0.0-6.0) /HPF Urine RBC (Auto) (0.0-6.0) /HPF U Epithel Cells (Auto) (0-13.0) /HPF Hyaline Casts /LPF Urine Mucus /HPF - Radiology Data Radiology results: report reviewed - Medical Decision Making Patient presents by EMS with altered mental status. Etiology for this is not known. There is pyuria. He has some degree of hypoxia. He has elevated markers concerning for coronavirus but does not have radiographic findings of coronavirus. At this time, we will proceed with admission. He is encephalopathic although we do not have a clear source. There was no focal deficit or history of head trauma that would suggest injury. I do not believe this represents a stroke. Patient will be admitted for ongoing treatment and management. He was given empiric antibiotic therapy for a possible urinary tract infection based on the pyuria. Critical Care Time: No Critical care attestation.: If time is entered above; I have spent that time in minutes in the direct care of this critically ill patient, excluding procedure time. ED Disposition Clinical Impression: Encephalopathy, Dehydration, Acute febrile illness Disposition: 09 ADMITTED INPATIENT Is pt being admited?: Yes Condition: Stable
[2021-04-25] MEDS ORDERED: ACETAMINOPHEN 650 MG RECT SUPP PR ONE (21:03)
[2021-04-25 22:03] LABS: Basophils % (Auto) 0.2 % (0.0-1.8); Eosinophils % (Auto) 0.1 % (0.0-4.3); Hematocrit 48.2 % (35.5-45.6); Hemoglobin 16.2 gm/dl (11.8-15.2); Lymphocytes # (Auto) 0.5 K/mm3 (1.2-5.4); Lymphocytes % (Auto) 5.1 % (13.4-35.0); Mean Corpuscular HGB Conc 34 % (32-34); Mean Corpuscular Volume 96 fl (84-94); Monocytes # (Auto) 0.9 K/mm3 (0.0-0.8); Monocytes % (Auto) 8.7 % (0.0-7.3); Platelet Count 163 K/mm3 (140-440); Red Blood Count 5.05 M/mm3 (3.65-5.03); Red Cell Distribution Width 14.4 % (13.2-15.2)
--- NOTE | 2021-04-25 22:15 | XRay Report ---
CHEST 1 VIEW 04/25/2021 9:58 PM INDICATION / CLINICAL INFORMATION: ams, cough. COMPARISON: 05/22/2018. FINDINGS: SUPPORT DEVICES: None. HEART / MEDIASTINUM: No significant abnormality. LUNGS / PLEURA: No significant pulmonary or pleural abnormality. No pneumothorax. ADDITIONAL FINDINGS: No significant additional findings. IMPRESSION: No acute abnormality. Signer Name: Robert Cavanaugh MD Signed: 04/25/2021 10:10 PM Workstation Name: [id number]
[2021-04-25 22:25] LABS: Alanine Aminotransferase 21 units/L (7-56); Albumin 3.8 g/dL (3.9-5); BUN/Creatinine Ratio 14; Blood Urea Nitrogen 11 mg/dL (9-20); Calcium 9.2 mg/dL (8.4-10.2); Hemolysis Index 205
[2021-04-25 22:26] LABS: C-Reactive Protein 2.4 mg/dL (0.00-1.30)
[2021-04-26] MEDS ORDERED: LACTATED RINGERS 1000 ML IV SOLN IV ONE (01:00)
[2021-04-26] MEDS ORDERED: ACETAMINOPHEN 650 MG RECT SUPP PR ONE (01:25)
[2021-04-26 02:06] LABS: Bilirubin,Urine SM (Negative); Blood,Urine MOD (Negative); Color,Urine Amber (Yellow); Hyaline Casts,Urine 20 /LPF; Mucus,Urine FEW /HPF
[2021-04-26] MEDS ORDERED: CEFEPIME/NS 1 GM/100 ML 1 GM/100 ML BAG IV ONE (02:18)
[2021-04-26 02:36] LABS: Ictotest,Urine Negative (Negative)
[2021-04-26] MEDS ORDERED: MORPHINE 2 MG/1 ML INJ IV PRN (04:02)
[2021-04-26] MEDS ORDERED: MAGNESIUM HYDROXIDE (MOM) ORAL LIQD UDC PO PRN (04:02)
[2021-04-26] MEDS ORDERED: MORPHINE 4 MG/1 ML INJ IV PRN (04:02)
[2021-04-26] MEDS ORDERED: ACETAMINOPHEN 325 MG TAB PO PRN (04:02)
[2021-04-26] MEDS ORDERED: ONDANSETRON 4 MG/2 ML INJ IV PRN (04:02)
--- NOTE | 2021-04-26 04:25 | History and Physical Report ---
History of Present Illness Date of examination: 04/26/21 Date of admission: 04/26/2021 Chief complaint: Altered Mental Status History of present illness: 20-year-old -[place] male brought into the emergency room by EMS for evaluation of altered mental status. Changes in mental status was said to have started sometime this afternoon. EMS was said to have been called earlier the day for lift assist because patient slid down his chair. There was no history of head injury, no history of loss of consciousness, no history of seizure disorder. Family was said to have noticed that patient has been more confused during the day, has had some low-grade fever and has been having some mild cough. There has been no nausea or vomiting, no diarrhea and no abdominal pain. No history of recent travel and no sick contacts. Patient unable to recall whether he got the COVID vaccination. Work-up in the emergency room today, chest x-ray reveals no acute findings. CT scan of the head is still being awaited. Past History Past Medical History: GERD, hypertension, seizures, other ( Brain aneurysm patient states he had 7 aneurysms, neuropathy secondary to chemotherapy, prostate cancer status post radiation) Past Surgical History: cholecystectomy Social history: smoking (Current Daily Smoker) Family history: no significant family history Medications and Allergies Allergies Allergy/AdvReac Type Severity Reaction Status Date / Time No Known Allergies Allergy Verified 05/10/18 08:56 Home Medications Medication Instructions Recorded Confirmed Last Taken Type lisinopriL [Lisinopril] 10 mg PO DAILY 12/20/13 05/22/18 02/16/15 History Dilantin 400 mg PO DAILY 05/22/18 05/22/18 Unknown History Gabapentin 100 mg PO BID 05/22/18 05/22/18 Unknown History Metoprolol [Lopressor TAB] 50 mg PO BID 05/22/18 05/22/18 Unknown History Omeprazole 20 mg PO BID 05/22/18 05/22/18 Unknown History levETIRAcetam [Keppra] 500 mg PO Q12H 05/22/18 05/22/18 Unknown History Nicotine [Habitrol] 21 mg TD QDAY #14 patch 05/25/18 Unknown Rx Tamsulosin HCl [Flomax] 0.4 mg PO DAILY #30 capsule 05/25/18 Unknown Rx levoFLOXacin [Levaquin TAB] 500 mg PO QDAY #5 tablet 05/25/18 Unknown Rx Active Meds: Active Medications Acetaminophen (Acetaminophen 325 Mg Tab) 650 mg PO Q4H PRN PRN Reason: Pain MILD(1-3)/Fever >100.5/ROY Heparin Sodium (Porcine) (Heparin 5,000 Unit/1 Ml Vial) 5,000 unit SUB-Q Q8HR [facility] Sodium Chloride (Nacl 0.9% 1000 Ml) 1,000 mls @ 125 mls/hr IV DIRECT GEOFFREY Magnesium Hydroxide (Magnesium Hydroxide (Mom) Oral Liqd Udc) 30 ml PO Q4H PRN PRN Reason: Constipation Morphine Sulfate (Morphine 2 Mg/1 Ml Inj) 2 mg IV Q4H PRN PRN Reason: Pain, Moderate (4-6) Morphine Sulfate (Morphine 4 Mg/1 Ml Inj) 4 mg IV Q4H PRN PRN Reason: Pain , Severe (7-10) Ondansetron HCl (Ondansetron 4 Mg/2 Ml Inj) 4 mg IV Q8H PRN PRN Reason: Nausea And Vomiting Sodium Chloride (Sodium Chloride 0.9% 10 Ml Flush Syringe) 10 ml IV BID GEOFFREY Sodium Chloride (Sodium Chloride 0.9% 10 Ml Flush Syringe) 10 ml IV PRN PRN PRN Reason: LINE FLUSH Review of Systems Constitutional: no fever, no chills Ears, nose, mouth and throat: no nasal congestion, no sore throat Cardiovascular: no chest pain, no palpitations Respiratory: no cough, no shortness of breath Gastrointestinal: no abdominal pain, no nausea, no vomiting, no diarrhea Genitourinary Male: no dysuria, no hematuria, no flank pain, no nocturia Musculoskeletal: no neck pain, no low back pain Integumentary: no rash, no pruritis Neurological: change in mentation, no headaches Psychiatric: no anxiety, no depression Exam - Constitutional Vitals: Temp Pulse Resp BP Pulse Ox 100.1 F H 112 H 22 164/98 96 04/26/21 00:15 04/26/21 00:31 04/26/21 01:19 04/26/21 00:31 04/26/21 00:31 General appearance: Present: no acute distress, well-nourished - EENT Eyes: Present: PERRL, EOM intact. Absent: scleral icterus ENT: hearing intact, clear oral mucosa, no dentition normal - Neck Neck: Present: supple, normal ROM - Respiratory Respiratory effort: normal Respiratory: bilateral: CTA - Cardiovascular Rhythm: regular Heart Sounds: Present: S1 & S2. Absent: gallop, systolic murmur, diastolic murmur, rub, click - Extremities Extremities: no ischemia, pulses intact, pulses symmetrical, No edema, normal temperature, normal color, Full ROM Peripheral Pulses: within normal limits - Abdominal General gastrointestinal: Present: soft, non-tender, non-distended, normal bowel sounds. Absent: mass - Integumentary Integumentary: Present: clear, warm, dry. Absent: rash - Musculoskeletal Musculoskeletal: strength equal bilaterally - Psychiatric Psychiatric: appropriate mood/affect, intact judgment & insight, cooperative, other (Appears confused) - Neurologic Neurologic: CNII-XII intact, no focal deficits, moves all extremities HEART Score - HEART Score Troponin: Troponin T < 0.010 ng/mL (0.00-0.029) 04/25/21 21:17 Results - Labs CBC & Chem 7: 04/25/21 21:17 04/25/21 21:17 Labs: Abnormal lab results 04/25/21 04/25/21 04/25/21 Range/Units 21:17 21:17 21:17 RBC 5.05 H (3.65-5.03) M/mm3 Hgb 16.2 H (11.8-15.2) gm/dl Hct 48.2 H (35.5-45.6) % MCV 96 H (84-94) fl Lymph % (Auto) 5.1 L (13.4-35.0) % [place] % (Auto) 8.7 H (0.0-7.3) % Lymph # (Auto) 0.5 L (1.2-5.4) K/mm3 [place] # (Auto) 0.9 H (0.0-0.8) K/mm3 Seg Neutrophils % 85.9 H (40.0-70.0) % Seg Neutrophils # 9.3 H (1.8-7.7) K/mm3 D-Dimer 485.00 H (0-234) ng/mlDDU Carbon Dioxide (22-30) mmol/L Glucose (75-100) mg/dL Total Bilirubin (0.1-1.2) mg/dL Alkaline Phosphatase (35-129) units/L Lactate Dehydrogenase 368 H (91-180) units/L C-Reactive Protein 2.40 H (0.00-1.30) mg/dL Albumin (3.9-5) g/dL Urine WBC (Auto) (0.0-6.0) /HPF 04/25/21 04/26/21 Range/Units 21:17 00:15 RBC (3.65-5.03) M/mm3 Hgb (11.8-15.2) gm/dl Hct (35.5-45.6) % MCV (84-94) fl Lymph % (Auto) (13.4-35.0) % [place] % (Auto) (0.0-7.3) % Lymph # (Auto) (1.2-5.4) K/mm3 [place] # (Auto) (0.0-0.8) K/mm3 Seg Neutrophils % (40.0-70.0) % Seg Neutrophils # (1.8-7.7) K/mm3 D-Dimer (0-234) ng/mlDDU Carbon Dioxide 20 L (22-30) mmol/L Glucose 177 H (75-100) mg/dL Total Bilirubin 1.60 H (0.1-1.2) mg/dL Alkaline Phosphatase 166 H (35-129) units/L Lactate Dehydrogenase 454 H (91-180) units/L C-Reactive Protein 2.30 H (0.00-1.30) mg/dL Albumin 3.8 L (3.9-5) g/dL Urine WBC (Auto) 12.0 H (0.0-6.0) /HPF Assessment and Plan - Patient Problems (1) Full code status Current Visit: Yes Status: Acute (2) Dehydration Current Visit: Yes Status: Acute (3) Encephalopathy Current Visit: Yes Status: Acute (4) DVT prophylaxis Current Visit: No Status: Acute
--- NOTE | 2021-04-26 06:00 | Cat Scan Report ---
CT head without contrast HISTORY: Altered Mental Status. TECHNIQUE: Axial imaging performed from the skull apex through the skull base without the use of con trast. All CT scans at this location are performed using CT dose reduction for ALARA by means of aut omated exposure control. COMPARISON: CT head from 11/27/2020 FINDINGS: Parenchyma: Old postoperative change along the left hemisphere with aneurysm clip in the middle cere bral artery distribution and areas of encephalomalacia. No acute abnormality identified. Ventricles: There is mild diffuse brain atrophy with commensurate ventricular enlargement which is l ikely age appropriate. Soft tissues: Left-sided craniotomy again noted. Bones: No acute osseous abnormality. Sinuses: Sinuses and mastoid air cells are clear. IMPRESSION: No acute abnormality. Chronic-appearing changes. Signer Name: Pratik Valderrama MD Signed: 04/26/2021 5:56 AM Workstation Name: [id number]
[2021-04-26] MEDS: HEPARIN 5,000 UNIT/1 ML VIAL SUB-Q SCH ×2 (09:02→14:30)
--- NOTE | 2021-04-26 09:49 | Progress Note ---
Assessment and Plan Assessment and plan: Toxic encephalopathy. Sepsis. Patient meets criteria given the tachycardia, tachypnea and diagnosis of UTI UTI. Seizure disorder Hypertension GERD History of tobacco abuse 04/26/2021. Altered mentation appears to be improved. Patient is alert and oriented x3 currently. There was no report of any seizure activity. We will resume home AED medication. The patient will be continued on the sepsis pathway. We will start antibiotics of Rocephin. Follow-up urine and blood cultures. Await COVID PCR testing. Chest x-ray was negative. Resume home antihypertensive medications History Interval history: No new issues overnight. Hospitalist Physical - Constitutional Vitals: Temp Pulse Resp BP Pulse Ox 100.1 F H 109 H 21 120/71 100 04/26/21 00:15 04/26/21 08:00 04/26/21 08:00 04/26/21 08:00 04/26/21 07:15 General appearance: Present: no acute distress, well-nourished - EENT Eyes: Present: PERRL, EOM intact ENT: hearing intact, clear oral mucosa, dentition normal - Neck Neck: Present: supple, normal ROM - Respiratory Respiratory effort: normal Respiratory: bilateral: CTA - Cardiovascular Rhythm: regular Heart Sounds: Present: S1 & S2. Absent: gallop, rub - Extremities Extremities: no ischemia, No edema, Full ROM - Abdominal General gastrointestinal: soft, non-tender, non-distended, normal bowel sounds - Integumentary Integumentary: Present: clear, warm, dry - Neurologic Neurologic: CNII-XII intact, moves all extremities HEART Score - HEART Score Troponin: Troponin T < 0.010 ng/mL (0.00-0.029) 04/25/21 21:17 Results - Labs CBC & Chem 7: 04/25/21 21:17 04/25/21 21:17 Labs: Laboratory Last Values WBC 10.8 K/mm3 (4.5-11.0) 04/25/21 21:17 RBC 5.05 M/mm3 (3.65-5.03) H 04/25/21 21:17 Hgb 16.2 gm/dl (11.8-15.2) H 04/25/21 21:17 Hct 48.2 % (35.5-45.6) H 04/25/21 21:17 MCV 96 fl (84-94) H 04/25/21 21:17 MCH 32 pg (28-32) 04/25/21 21:17 MCHC 34 % (32-34) 04/25/21 21:17 RDW 14.4 % (13.2-15.2) 04/25/21 21:17 Plt Count 163 K/mm3 (140-440) 04/25/21 21:17 Lymph % (Auto) 5.1 % (13.4-35.0) L 04/25/21 21:17 [place] % (Auto) 8.7 % (0.0-7.3) H 04/25/21 21:17 Eos % (Auto) 0.1 % (0.0-4.3) 04/25/21 21:17 Baso % (Auto) 0.2 % (0.0-1.8) 04/25/21 21:17 Lymph # (Auto) 0.5 K/mm3 (1.2-5.4) L 04/25/21 21:17 [place] # (Auto) 0.9 K/mm3 (0.0-0.8) H 04/25/21 21:17 Eos # (Auto) 0.0 K/mm3 (0.0-0.4) 04/25/21 21:17 Baso # (Auto) 0.0 K/mm3 (0.0-0.1) 04/25/21 21:17 Seg Neutrophils % 85.9 % (40.0-70.0) H 04/25/21 21:17 Seg Neutrophils # 9.3 K/mm3 (1.8-7.7) H 04/25/21 21:17 D-Dimer 485.00 ng/mlDDU (0-234) H 04/25/21 21:17 Sodium 140 mmol/L (137-145) 04/25/21 21:17 Potassium 4.2 mmol/L (3.6-5.0) 04/25/21 21:17 Chloride 103.9 mmol/L (98-107) 04/25/21 21:17 Carbon Dioxide 20 mmol/L (22-30) L 04/25/21 21:17 Anion Gap 20 mmol/L 04/25/21 21:17 BUN 11 mg/dL (9-20) 04/25/21 21:17 Creatinine 0.8 mg/dL (0.8-1.3) 04/25/21 21:17 Estimated GFR > 60 ml/min 04/25/21 21:17 BUN/Creatinine Ratio 14 % 04/25/21 21:17 Glucose 177 mg/dL (75-100) H 04/25/21 21:17 Lactic Acid 1.50 mmol/L (0.7-2.0) 04/26/21 01:56 Calcium 9.2 mg/dL (8.4-10.2) 04/25/21 21:17 Total Bilirubin 1.60 mg/dL (0.1-1.2) H 04/25/21 21:17 AST 30 units/L (5-40) 04/25/21 21:17 ALT 21 units/L (7-56) 04/25/21 21:17 Alkaline Phosphatase 166 units/L (35-129) H 04/25/21 21:17 Lactate Dehydrogenase 368 units/L (91-180) H 04/25/21 21:17 Lactate Dehydrogenase 454 units/L (91-180) H 04/25/21 21:17 Troponin T < 0.010 ng/mL (0.00-0.029) 04/25/21 21:17 C-Reactive Protein 2.30 mg/dL (0.00-1.30) H 04/25/21 21:17 C-Reactive Protein 2.40 mg/dL (0.00-1.30) H 04/25/21 21:17 Total Protein 7.8 g/dL (6.3-8.2) 04/25/21 21:17 Albumin 3.8 g/dL (3.9-5) L 04/25/21 21:17 Albumin/Globulin Ratio 1.0 % 04/25/21 21:17 Urine Color Sia (Yellow) 04/26/21 00:15 Urine Turbidity Clear (Clear) 04/26/21 00:15 Urine pH 6.0 (5.0-7.0) 04/26/21 00:15 Ur Specific [place] 1.020 (1.003-1.030) 04/26/21 00:15 Urine Protein 100 mg/dl mg/dL (Negative) 04/26/21 00:15 Urine Glucose (UA) 50 mg/dL (Negative) 04/26/21 00:15 Urine Ketones Neg mg/dL (Negative) 04/26/21 00:15 Urine Blood Mod (Negative) 04/26/21 00:15 Urine Nitrite Neg (Negative) 04/26/21 00:15 Urine Bilirubin Sm (Negative) 04/26/21 00:15 Urine Ictotest Negative (Negative) 04/26/21 00:15 Urine Urobilinogen 4.0 mg/dL (<2.0) 04/26/21 00:15 Ur Leukocyte Esterase Neg (Negative) 04/26/21 00:15 Urine WBC (Auto) 12.0 /HPF (0.0-6.0) H 04/26/21 00:15 Urine RBC (Auto) 16.0 /HPF (0.0-6.0) 04/26/21 00:15 U Epithel Cells (Auto) 5.0 /HPF (0-13.0) 04/26/21 00:15 Hyaline Casts 20 /LPF 04/26/21 00:15 Urine Mucus Few /HPF 04/26/21 00:15 Microbiology: Microbiology 04/25/21 21:17 Peripheral/Venous Blood Culture - Preliminary Culture in Progress 04/25/21 21:30 Peripheral/Venous Blood Culture - Preliminary Culture in Progress Active Medications - Current Medications Current Medications: Generic Name Dose Route Start Last Admin Trade Name Freq PRN Reason Stop Dose Admin Acetaminophen 650 mg 04/26/21 04:02 Acetaminophen 325 Mg Tab PO Q4H PRN Pain MILD(1-3)/Fever >100.5/ROY Heparin Sodium (Porcine) 5,000 unit 04/26/21 06:00 04/26/21 09:02 Heparin 5,000 Unit/1 Ml Vial SUB-Q Not Given Q8HR GEOFFREY Sodium Chloride 1,000 mls @ 125 mls/hr 04/26/21 04:15 Nacl 0.9% 1000 Ml IV DIRECT GEOFFREY Magnesium Hydroxide 30 ml 04/26/21 04:02 Magnesium Hydroxide (Mom) Oral Liqd Udc PO Q4H PRN Constipation Morphine Sulfate 2 mg 04/26/21 04:02 Morphine 2 Mg/1 Ml Inj IV Q4H PRN Pain, Moderate (4-6) Morphine Sulfate 4 mg 04/26/21 04:02 Morphine 4 Mg/1 Ml Inj IV Q4H PRN Pain , Severe (7-10) Ondansetron HCl 4 mg 04/26/21 04:02 Ondansetron 4 Mg/2 Ml Inj IV Q8H PRN Nausea And Vomiting Sodium Chloride 10 ml 04/26/21 10:00 Sodium Chloride 0.9% 10 Ml Flush Syringe IV BID GEOFFREY Sodium Chloride 10 ml 04/26/21 04:02 Sodium Chloride 0.9% 10 Ml Flush Syringe IV PRN PRN LINE FLUSH
[2021-04-26] MEDS ORDERED: DILANTIN 400 MG PO SCH (10:00)
[2021-04-26] MEDS: PHENYTOIN 100 MG CAPSULE.ER PO SCH (14:29)
[2021-04-26] MEDS: NICOTINE 21 MG/24 HR PATCH TD SCH (14:29)
[2021-04-26] MEDS: METOPROLOL TARTRATE 50 MG TAB PO SCH (14:29)
[2021-04-26] MEDS: TAMSULOSIN 0.4 MG CAP PO SCH (14:29)
[2021-04-26] MEDS: GABAPENTIN 100 MG CAP PO SCH (14:29)
[2021-04-26] MEDS: levETIRAcetam 500 MG TAB PO SCH (14:29)
[2021-04-26] MEDS: LISINOPRIL 10 MG TAB PO SCH (14:30)
[2021-04-26] MEDS: cefTRIAXone/NS 1 GM/50 ML 1 GM/50 ML BAG IV SCH (14:30)
[2021-04-27] MEDS: METOPROLOL TARTRATE 50 MG TAB PO SCH ×3 (04:47→21:50)
[2021-04-27] MEDS: levETIRAcetam 500 MG TAB PO SCH ×3 (04:48→23:19)
[2021-04-27] MEDS: HEPARIN 5,000 UNIT/1 ML VIAL SUB-Q SCH ×4 (04:48→21:49)
[2021-04-27] MEDS: GABAPENTIN 100 MG CAP PO SCH ×3 (04:56→21:50)
[2021-04-27 06:05] LABS: Basophils % (Auto) 0.5 % (0.0-1.8); Eosinophils % (Auto) 0.2 % (0.0-4.3); Hematocrit 45.1 % (35.5-45.6); Hemoglobin 14.7 gm/dl (11.8-15.2); Lymphocytes % (Auto) 20.5 % (13.4-35.0); Mean Corpuscular HGB Conc 33 % (32-34); Mean Corpuscular Volume 96 fl (84-94); Monocytes # (Auto) 0.8 K/mm3 (0.0-0.8); Monocytes % (Auto) 7.9 % (0.0-7.3); Platelet Count 131 K/mm3 (140-440); Red Blood Count 4.69 M/mm3 (3.65-5.03)
[2021-04-27 06:23] LABS: BUN/Creatinine Ratio 21; Blood Urea Nitrogen 21 mg/dL (9-20); Calcium 8.3 mg/dL (8.4-10.2); Hemolysis Index 23
[2021-04-27] MEDS: SODIUM CHLORIDE 0.9% 1000 ML 1,000 ML IV SCH (07:59)
[2021-04-27] MEDS: PHENYTOIN 100 MG CAPSULE.ER PO SCH (11:34)
[2021-04-27] MEDS: cefTRIAXone/NS 1 GM/50 ML 1 GM/50 ML BAG IV SCH (11:35)
[2021-04-27] MEDS: LISINOPRIL 10 MG TAB PO SCH (11:35)
[2021-04-27] MEDS: NICOTINE 21 MG/24 HR PATCH TD SCH (11:35)
[2021-04-27] MEDS: TAMSULOSIN 0.4 MG CAP PO SCH (11:36)
[2021-04-27] MEDS ORDERED: guaiFENesin DM 200/20 MG ORAL LIQD 10 ML PO PRN (21:46)
[2021-04-27] MEDS: guaiFENesin ER 600 MG TAB PO SCH (23:19)
[2021-04-28] MEDS: SODIUM CHLORIDE 0.9% 1000 ML 1,000 ML IV SCH (05:43)
[2021-04-28] MEDS: HEPARIN 5,000 UNIT/1 ML VIAL SUB-Q SCH ×3 (06:26→22:19)
[2021-04-28] MEDS: NICOTINE 21 MG/24 HR PATCH TD SCH (10:34)
[2021-04-28] MEDS: TAMSULOSIN 0.4 MG CAP PO SCH (10:35)
[2021-04-28] MEDS: guaiFENesin ER 600 MG TAB PO SCH ×2 (10:35→22:10)
[2021-04-28] MEDS: METOPROLOL TARTRATE 50 MG TAB PO SCH ×2 (10:35→22:06)
[2021-04-28] MEDS: PHENYTOIN 100 MG CAPSULE.ER PO SCH (10:35)
[2021-04-28] MEDS: GABAPENTIN 100 MG CAP PO SCH ×2 (10:35→22:06)
[2021-04-28] MEDS: LISINOPRIL 10 MG TAB PO SCH (10:35)
[2021-04-28] MEDS: levETIRAcetam 500 MG TAB PO SCH ×2 (12:11→22:10)
[2021-04-28] MEDS: cefTRIAXone/NS 1 GM/50 ML 1 GM/50 ML BAG IV SCH (12:11)
--- NOTE | 2021-04-28 18:02 | Progress Note ---
Assessment and Plan Assessment and plan: 70-year-old -[place] male who lives his with PMH of HTN, ongoing tobacco smoking and seizure disorder brought into the emergency room by EMS for evaluation of altered mental status. Changes in mental status was said to have started sometime this afternoon. EMS was said to have been called earlier the day for lift assist because patient slid down his chair. No seizure activity reported. Reportedly his noticed that patient has been more confused during the day, has had some low-grade fever and has been having some mild cough. There has been no nausea or vomiting, no diarrhea and no abdominal pain. No history of recent travel and no sick contacts. According to son, patient received only 1 shot of COVID-19 vaccine. Acute encephalopathy Improving, able to answers most of the questions appropriately but still looks sluggish. According to his son, he was doing fine physically and mentally when [facility] [place] [facility] Patient uses walker to ambulate but drives and traveled by air independent. CT head negative in ED. Fall at home Etiology unclear Differential diagnosis: Dizziness/encephalopathy, sepsis, seizure Suspected sepsis. Patient meets criteria given the tachycardia, tachypnea and diagnosis of UTI Blood cultures negative to date. Temperature 100.1 at the time of admission and then normal since. No leukocytosis. Chest x-ray unremarkable. COVID-19 PCR test are negative. UTI, appears mild. Urine cultures grew less than 10,000 CFU. Acute COPD exacerbation with hypoxia Patient has cough and some low-grade fever. No leukocytosis. Chest x-ray negative. Has wheezes and mild dyspnea at rest. Patient placed on previous O2 but weaned to room air today Treating with antibiotics, steroids and nebs. Seizure disorder, no seizure activity reported. Continue home meds. Hypertension GERD Ongoing tobacco use. Discussed with the patient's son. History Interval history: Patient is awake and is able to answer most of the questions well. Was on 3 L O2, wean to room air today. Continues to have dry cough. Mildly dyspneic with conversation. He is a smoker. Denies history of COPD. Patient reports that is not feeling well. Afebrile. Spoke to son who stated that patient had visited him [place] [facility] and was doing fine physically and mentally then. Hospitalist Physical - Constitutional Vitals: Temp Pulse Resp BP Pulse Ox 98.9 F 76 12 132/91 92 04/28/21 02:57 04/28/21 13:00 04/28/21 13:00 04/28/21 13:00 04/28/21 13:00 General appearance: Present: mild distress, well-nourished, other (Alert, fairly oriented, appears sluggish, mild dyspnea.) - EENT Eyes: Present: PERRL, EOM intact ENT: hearing intact - Neck Neck: Present: supple - Respiratory Respiratory effort: labored Respiratory: bilateral: wheezing (Mild bilateral wheezes, mild dyspnea) - Cardiovascular Rhythm: regular - Extremities Extremities: No edema - Abdominal General gastrointestinal: soft, non-tender - Integumentary Integumentary: Absent: rash - Neurologic Neurologic: no focal deficits, moves all extremities, other (Appears generally sluggish.) HEART Score - HEART Score Troponin: Troponin T < 0.010 ng/mL (0.00-0.029) 04/25/21 21:17 Results - Labs CBC & Chem 7: 04/27/21 05:20 04/27/21 05:20 Labs: Laboratory Last Values WBC 9.9 K/mm3 (4.5-11.0) 04/27/21 05:20 RBC 4.69 M/mm3 (3.65-5.03) 04/27/21 05:20 Hgb 14.7 gm/dl (11.8-15.2) 04/27/21 05:20 Hct 45.1 % (35.5-45.6) 04/27/21 05:20 MCV 96 fl (84-94) H 04/27/21 05:20 MCH 31 pg (28-32) 04/27/21 05:20 MCHC 33 % (32-34) 04/27/21 05:20 RDW 15.0 % (13.2-15.2) 04/27/21 05:20 Plt Count 131 K/mm3 (140-440) L 04/27/21 05:20 Lymph % (Auto) 20.5 % (13.4-35.0) 04/27/21 05:20 [place] % (Auto) 7.9 % (0.0-7.3) H 04/27/21 05:20 Eos % (Auto) 0.2 % (0.0-4.3) 04/27/21 05:20 Baso % (Auto) 0.5 % (0.0-1.8) 04/27/21 05:20 Lymph # (Auto) 2.0 K/mm3 (1.2-5.4) 04/27/21 05:20 [place] # (Auto) 0.8 K/mm3 (0.0-0.8) 04/27/21 05:20 Eos # (Auto) 0.0 K/mm3 (0.0-0.4) 04/27/21 05:20 Baso # (Auto) 0.0 K/mm3 (0.0-0.1) 04/27/21 05:20 Seg Neutrophils % 70.9 % (40.0-70.0) H 04/27/21 05:20 Seg Neutrophils # 7.0 K/mm3 (1.8-7.7) 04/27/21 05:20 D-Dimer 485.00 ng/mlDDU (0-234) H 04/25/21 21:17 Sodium 144 mmol/L (137-145) 04/27/21 05:20 Potassium 4.0 mmol/L (3.6-5.0) 04/27/21 05:20 Chloride 105.8 mmol/L (98-107) 04/27/21 05:20 Carbon Dioxide 24 mmol/L (22-30) 04/27/21 05:20 Anion Gap 18 mmol/L 04/27/21 05:20 BUN 21 mg/dL (9-20) H 04/27/21 05:20 Creatinine 1.0 mg/dL (0.8-1.3) 04/27/21 05:20 Estimated GFR > 60 ml/min 04/27/21 05:20 BUN/Creatinine Ratio 21 % 04/27/21 05:20 Glucose 162 mg/dL (75-100) H 04/27/21 05:20 Lactic Acid 1.50 mmol/L (0.7-2.0) 04/26/21 01:56 Calcium 8.3 mg/dL (8.4-10.2) L 04/27/21 05:20 Total Bilirubin 1.60 mg/dL (0.1-1.2) H 04/25/21 21:17 AST 30 units/L (5-40) 04/25/21 21:17 ALT 21 units/L (7-56) 04/25/21 21:17 Alkaline Phosphatase 166 units/L (35-129) H 04/25/21 21:17 Lactate Dehydrogenase 368 units/L (91-180) H 04/25/21 21:17 Lactate Dehydrogenase 454 units/L (91-180) H 04/25/21 21:17 Troponin T < 0.010 ng/mL (0.00-0.029) 04/25/21 21:17 C-Reactive Protein 2.30 mg/dL (0.00-1.30) H 04/25/21 21:17 C-Reactive Protein 2.40 mg/dL (0.00-1.30) H 04/25/21 21:17 Total Protein 7.8 g/dL (6.3-8.2) 04/25/21 21:17 Albumin 3.8 g/dL (3.9-5) L 04/25/21 21:17 Albumin/Globulin Ratio 1.0 % 04/25/21 21:17 Procalcitonin 0.52 ng/mL (<0.15) 04/25/21 21:17 Urine Color Sia (Yellow) 04/26/21 00:15 Urine Turbidity Clear (Clear) 04/26/21 00:15 Urine pH 6.0 (5.0-7.0) 04/26/21 00:15 Ur Specific [place] 1.020 (1.003-1.030) 04/26/21 00:15 Urine Protein 100 mg/dl mg/dL (Negative) 04/26/21 00:15 Urine Glucose (UA) 50 mg/dL (Negative) 04/26/21 00:15 Urine Ketones Neg mg/dL (Negative) 04/26/21 00:15 Urine Blood Mod (Negative) 04/26/21 00:15 Urine Nitrite Neg (Negative) 04/26/21 00:15 Urine Bilirubin Sm (Negative) 04/26/21 00:15 Urine Ictotest Negative (Negative) 04/26/21 00:15 Urine Urobilinogen 4.0 mg/dL (<2.0) 04/26/21 00:15 Ur Leukocyte Esterase Neg (Negative) 04/26/21 00:15 Urine WBC (Auto) 12.0 /HPF (0.0-6.0) H 04/26/21 00:15 Urine RBC (Auto) 16.0 /HPF (0.0-6.0) 04/26/21 00:15 U Epithel Cells (Auto) 5.0 /HPF (0-13.0) 04/26/21 00:15 Hyaline Casts 20 /LPF 04/26/21 00:15 Urine Mucus Few /HPF 04/26/21 00:15 Coronavirus (PCR) Negative (Negative) 04/25/21 09:36 Microbiology: Microbiology 04/25/21 21:17 Peripheral/Venous Blood Culture - Preliminary NO GROWTH AFTER 48 HOURS 04/25/21 21:30 Peripheral/Venous Blood Culture - Preliminary NO GROWTH AFTER 48 HOURS 04/26/21 00:15 Urine,Clean Catch Urine Culture - Preliminary Garcia/IV: Voiding Method Condom Catheter Active Medications - Current Medications Current Medications: Generic Name Dose Route Start Last Admin Trade Name Freq PRN Reason Stop Dose Admin Acetaminophen 650 mg 04/26/21 04:02 Acetaminophen 325 Mg Tab PO Q4H PRN Pain MILD(1-3)/Fever >100.5/ROY Arformoterol Tartrate 15 mcg 04/28/21 15:00 Arformoterol 15 Mcg/2 Ml Nebu IH Q12H GEOFFREY Budesonide 0.25 mg 04/28/21 20:00 Budesonide 0.25 Mg/2 Ml Nebu IH Q12HRT GEOFFREY Gabapentin 100 mg 04/26/21 10:00 04/28/21 10:35 Gabapentin 100 Mg Cap PO 100 mg BID GEOFFREY Administration Guaifenesin 600 mg 04/27/21 22:00 04/28/21 10:35 Guaifenesin Er 600 Mg Tab PO 600 mg BID GEOFFREY Administration Guaifenesin 10 ml 04/27/21 21:46 04/28/21 05:43 Guaifenesin Dm 200/20 Mg Oral Liqd 10 Ml PO 10 ml Q4H PRN Administration Cough Heparin Sodium (Porcine) 5,000 unit 04/26/21 06:00 04/28/21 06:26 Heparin 5,000 Unit/1 Ml Vial SUB-Q 5,000 unit Q8HR GEOFFREY Administration Sodium Chloride 1,000 mls @ 125 mls/hr 04/26/21 04:15 04/28/21 05:43 Nacl 0.9% 1000 Ml IV 125 mls/hr DIRECT GEOFFREY Administration Ceftriaxone Sodium 1 gm in 50 mls @ 100 mls/hr 04/26/21 10:00 04/28/21 12:11 Rocephin/Ns 1 Gm/50 Ml IV 100 mls/hr Q24H GEOFFREY Administration Protocol Levetiracetam 500 mg 04/26/21 10:00 04/28/21 12:11 Levetiracetam 500 Mg Tab PO 500 mg Q12H GEOFFREY Administration Lisinopril 10 mg 04/26/21 10:00 04/28/21 10:35 Lisinopril 10 Mg Tab PO 10 mg DAILY GEOFFREY Administration Magnesium Hydroxide 30 ml 04/26/21 04:02 Magnesium Hydroxide (Mom) Oral Liqd Udc PO Q4H PRN Constipation Metoprolol Tartrate 50 mg 04/26/21 10:00 04/28/21 10:35 Metoprolol Tartrate 50 Mg Tab PO 50 mg BID GEOFFREY Administration Morphine Sulfate 4 mg 04/26/21 04:02 Morphine 4 Mg/1 Ml Inj IV Q4H PRN Pain , Severe (7-10) Nicotine 21 mg 04/26/21 10:00 04/28/21 10:34 Nicotine 21 Mg/24 Hr Patch TD 21 mg QDAY GEOFFREY Administration Ondansetron HCl 4 mg 04/26/21 04:02 Ondansetron 4 Mg/2 Ml Inj IV Q8H PRN Nausea And Vomiting Phenytoin 400 mg 04/26/21 10:00 04/28/21 10:35 Phenytoin 100 Mg Capsule.Er PO 400 mg DAILY GEOFFREY Administration Sodium Chloride 10 ml 04/26/21 10:00 04/28/21 10:35 Sodium Chloride 0.9% 10 Ml Flush Syringe IV 10 ml BID GEOFFREY Administration Sodium Chloride 10 ml 04/26/21 04:02 Sodium Chloride 0.9% 10 Ml Flush Syringe IV PRN PRN LINE FLUSH Tamsulosin HCl 0.4 mg 04/26/21 10:00 04/28/21 10:35 Tamsulosin 0.4 Mg Cap PO 0.4 mg DAILY GEOFFREY Administration
--- NOTE | 2021-04-28 18:06 | Event Note ---
Date: 04/27/21 Progress note: Patient seen and examined by me 04/27/2019 Patient remains sluggish but awake and answers appropriately. Has mild dyspnea on 3 L of O2. Has cough. T-max 100.1. Physical exam., Awake verbal,. Ballistic unclear support. All mucosa moist. Face symmetrical. Pupils normal. MM's intact. Neck supple. No JVD. Bilateral mild wheezes.. Abdomen soft and nontender.. Moves all extremities equally. Assessment: 70-year-old -[place] male who lives his with PMH of HTN, ongoing tobacco smoking and seizure disorder brought into the emergency room by EMS for evaluation of altered mental status. Changes in mental status was said to have started sometime this afternoon. EMS was said to have been called earlier the day for lift assist because patient slid down his chair. No seizure activity reported. Reportedly his noticed that patient has been more confused during the day, has had some low-grade fever and has been having some mild cough. There has been no nausea or vomiting, no diarrhea and no abdominal pain. No history of recent travel and no sick contacts. According to son, patient received only 1 shot of COVID-19 vaccine. Acute encephalopathy Improving, able to answers most of the questions appropriately but still looks sluggish. According to his son, he was doing fine physically and mentally when visited him for Thanksgiving. Patient uses walker to ambulate but drives and traveled by air independent. CT head negative in ED. Fall at home Etiology unclear Differential diagnosis: Dizziness/encephalopathy, sepsis, seizure Suspected sepsis. Patient meets criteria given the tachycardia, tachypnea and diagnosis of UTI Blood cultures negative to date. Temperature 100.1 at the time of admission and then normal since. No leukocytosis. Chest x-ray unremarkable. COVID-19 PCR test are negative. UTI, appears mild. Urine cultures grew less than 10,000 CFU. Acute COPD exacerbation with hypoxia Patient has cough and some low-grade fever. No leukocytosis. Chest x-ray negative. Has wheezes and mild dyspnea at rest. Treating with antibiotics, steroids and nebs. Seizure disorder, no seizure activity reported. Continue home meds. Hypertension GERD Ongoing tobacco use. Discussed with the patient's son
[2021-04-28] MEDS: BUDESONIDE 0.25 MG/2 ML NEBU IH SCH (20:54)
[2021-04-29] MEDS: SODIUM CHLORIDE 0.9% 1000 ML 1,000 ML IV SCH (06:22)
[2021-04-29] MEDS: HEPARIN 5,000 UNIT/1 ML VIAL SUB-Q SCH ×3 (06:22→21:44)
[2021-04-29] MEDS: ARFORMOTEROL 15 MCG/2 ML NEBU IH SCH ×3 (09:07→21:08)
[2021-04-29] MEDS: BUDESONIDE 0.25 MG/2 ML NEBU IH SCH ×2 (09:08→21:00)
[2021-04-29] MEDS: AZITHROMYCIN/NS 500 MG/250 ML 500 MG/250 ML BAG IV SCH (11:08)
[2021-04-29] MEDS: cefTRIAXone/NS 1 GM/50 ML 1 GM/50 ML BAG IV SCH (11:11)
[2021-04-29] MEDS: LISINOPRIL 10 MG TAB PO SCH (11:16)
[2021-04-29] MEDS: TAMSULOSIN 0.4 MG CAP PO SCH (11:17)
[2021-04-29] MEDS: METOPROLOL TARTRATE 50 MG TAB PO SCH ×2 (11:23→21:44)
[2021-04-29] MEDS: guaiFENesin ER 600 MG TAB PO SCH ×2 (11:24→21:43)
[2021-04-29] MEDS: PHENYTOIN 100 MG CAPSULE.ER PO SCH (11:24)
[2021-04-29] MEDS: NICOTINE 21 MG/24 HR PATCH TD SCH (11:29)
[2021-04-29] MEDS: levETIRAcetam 500 MG TAB PO SCH ×2 (11:38→21:54)
--- NOTE | 2021-04-29 13:07 | XRay Report ---
CHEST 1 VIEW INDICATION: Dyspnea. COMPARISON: 04/25/2021 FINDINGS: Support devices: None. Heart: Within normal limits. Lungs/Pleura: No acute air space or interstitial disease. Additional findings: None. IMPRESSION: No acute findings. Signer Name: Adriel Shane Jr, MD Signed: 04/29/2021 1:03 PM Workstation Name: [id number]
[2021-04-29 14:58] LABS: Alanine Aminotransferase 26 units/L (7-56); Albumin 3.3 g/dL (3.9-5); BUN/Creatinine Ratio 16; Blood Urea Nitrogen 13 mg/dL (9-20); Calcium 8.3 mg/dL (8.4-10.2); Hemolysis Index 56
[2021-04-29 15:05] LABS: Basophils % (Auto) 0.5 % (0.0-1.8); Eosinophils # (Auto) 0.2 K/mm3 (0.0-0.4); Eosinophils % (Auto) 3.8 % (0.0-4.3); Hematocrit 42.6 % (35.5-45.6); Hemoglobin 14.1 gm/dl (11.8-15.2); Lymphocytes % (Auto) 44.2 % (13.4-35.0); Mean Corpuscular HGB Conc 33 % (32-34); Mean Corpuscular Volume 95 fl (84-94); Monocytes # (Auto) 0.4 K/mm3 (0.0-0.8); Monocytes % (Auto) 8.6 % (0.0-7.3); Platelet Count 131 K/mm3 (140-440); Red Blood Count 4.48 M/mm3 (3.65-5.03); Red Cell Distribution Width 14.4 % (13.2-15.2)
--- NOTE | 2021-04-29 21:10 | Progress Note ---
Assessment and Plan Assessment and plan: 70-year-old -[place] male who lives his with PMH of HTN, ongoing tobacco smoking and seizure disorder brought into the emergency room by EMS for evaluation of altered mental status. Changes in mental status was said to have started sometime this afternoon. EMS was said to have been called earlier the day for lift assist because patient slid down his chair. No seizure activity reported. Reportedly his noticed that patient has been more confused during the day, has had some low-grade fever and has been having some mild cough. There has been no nausea or vomiting, no diarrhea and no abdominal pain. No history of recent travel and no sick contacts. According to son, patient received only 1 shot of COVID-19 vaccine. Acute encephalopathy Improving, able to answers most of the questions appropriately but still looks sluggish. According to his son, he was doing fine physically and mentally when visited him for Thanksgiving. Patient uses walker to ambulate but drives and traveled by air independent. CT head negative in ED. Fall at home, gait difficulty Etiology unclear Differential diagnosis: Dizziness/encephalopathy, sepsis, seizure PT and OT ordered. Suspected sepsis. Patient meets criteria given the tachycardia, tachypnea and diagnosis of UTI Blood cultures negative to date. Temperature 100.1 at the time of admission and then normal since. No leukocytosis. Chest x-ray unremarkable. COVID-19 PCR test are negative. UTI, appears mild. Urine cultures grew less than 10,000 CFU. Acute COPD exacerbation with hypoxia Patient has cough and some low-grade fever. No leukocytosis. Chest x-ray negative. Has wheezes and mild dyspnea at rest. Patient placed on previous O2 but weaned to room air Treating with antibiotics, steroids and nebs. Seizure disorder, no seizure activity reported. Continue home meds. Hypertension GERD Ongoing tobacco use. Disposition: Home with PT versus subacute rehab. 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 Cough and dyspnea are better. Mental status sedated. Walking with PT. Remains afebrile. Hospitalist Physical - Constitutional Vitals: Temp Pulse Resp BP Pulse Ox 98.9 F 62 18 114/87 100 04/29/21 03:00 04/29/21 16:00 04/29/21 16:00 04/29/21 18:30 04/29/21 20:00 General appearance: Present: mild distress, well-nourished, other (Alert, fairly oriented, appears sluggish, mild dyspnea.) - EENT Eyes: Present: PERRL, EOM intact ENT: clear oral mucosa - Respiratory Respiratory effort: normal Respiratory: bilateral: wheezing - Cardiovascular Rhythm: regular - Extremities Extremities: No edema - Abdominal General gastrointestinal: soft, non-tender, non-distended - Integumentary Integumentary: Absent: rash - Psychiatric Psychiatric: appropriate mood/affect - Neurologic Neurologic: other (Somnolence/encephalopathy improving. Answers appropriately. No focal motor deficits.) HEART Score - HEART Score Troponin: Troponin T < 0.010 ng/mL (0.00-0.029) 04/25/21 21:17 Results - Labs CBC & Chem 7: 04/29/21 14:02 04/29/21 14:02 Labs: Laboratory Last Values WBC 4.6 K/mm3 (4.5-11.0) 04/29/21 14:02 RBC 4.48 M/mm3 (3.65-5.03) 04/29/21 14:02 Hgb 14.1 gm/dl (11.8-15.2) 04/29/21 14:02 Hct 42.6 % (35.5-45.6) 04/29/21 14:02 MCV 95 fl (84-94) H 04/29/21 14:02 MCH 32 pg (28-32) 04/29/21 14:02 MCHC 33 % (32-34) 04/29/21 14:02 RDW 14.4 % (13.2-15.2) 04/29/21 14:02 Plt Count 131 K/mm3 (140-440) L 04/29/21 14:02 Lymph % (Auto) 44.2 % (13.4-35.0) H 04/29/21 14:02 Noble % (Auto) 8.6 % (0.0-7.3) H 04/29/21 14:02 Eos % (Auto) 3.8 % (0.0-4.3) 04/29/21 14:02 Baso % (Auto) 0.5 % (0.0-1.8) 04/29/21 14:02 Lymph # (Auto) 2.0 K/mm3 (1.2-5.4) 04/29/21 14:02 Noble # (Auto) 0.4 K/mm3 (0.0-0.8) 04/29/21 14:02 Eos # (Auto) 0.2 K/mm3 (0.0-0.4) 04/29/21 14:02 Baso # (Auto) 0.0 K/mm3 (0.0-0.1) 04/29/21 14:02 Seg Neutrophils % 42.9 % (40.0-70.0) 04/29/21 14:02 Seg Neutrophils # 2.0 K/mm3 (1.8-7.7) 04/29/21 14:02 D-Dimer 485.00 ng/mlDDU (0-234) H 04/25/21 21:17 Sodium 144 mmol/L (137-145) 04/29/21 14:02 Potassium 4.0 mmol/L (3.6-5.0) 04/29/21 14:02 Chloride 108.1 mmol/L (98-107) H 04/29/21 14:02 Carbon Dioxide 21 mmol/L (22-30) L 04/29/21 14:02 Anion Gap 19 mmol/L 04/29/21 14:02 BUN 13 mg/dL (9-20) 04/29/21 14:02 Creatinine 0.8 mg/dL (0.8-1.3) 04/29/21 14:02 Estimated GFR > 60 ml/min 04/29/21 14:02 BUN/Creatinine Ratio 16 % 04/29/21 14:02 Glucose 129 mg/dL (75-100) H 04/29/21 14:02 Lactic Acid 1.50 mmol/L (0.7-2.0) 04/26/21 01:56 Calcium 8.3 mg/dL (8.4-10.2) L 04/29/21 14:02 Total Bilirubin 0.90 mg/dL (0.1-1.2) 04/29/21 14:02 AST 72 units/L (5-40) H 04/29/21 14:02 ALT 26 units/L (7-56) 04/29/21 14:02 Alkaline Phosphatase 115 units/L (35-129) 04/29/21 14:02 Lactate Dehydrogenase 368 units/L (91-180) H 04/25/21 21:17 Lactate Dehydrogenase 454 units/L (91-180) H 04/25/21 21:17 Troponin T < 0.010 ng/mL (0.00-0.029) 04/25/21 21:17 C-Reactive Protein 2.30 mg/dL (0.00-1.30) H 04/25/21 21:17 C-Reactive Protein 2.40 mg/dL (0.00-1.30) H 04/25/21 21:17 Total Protein 7.2 g/dL (6.3-8.2) 04/29/21 14:02 Albumin 3.3 g/dL (3.9-5) L 04/29/21 14:02 Albumin/Globulin Ratio 0.8 % 04/29/21 14:02 Procalcitonin 0.52 ng/mL (<0.15) 04/25/21 21:17 Urine Color Sia (Yellow) 04/26/21 00:15 Urine Turbidity Clear (Clear) 04/26/21 00:15 Urine pH 6.0 (5.0-7.0) 04/26/21 00:15 Ur Specific [place] 1.020 (1.003-1.030) 04/26/21 00:15 Urine Protein 100 mg/dl mg/dL (Negative) 04/26/21 00:15 Urine Glucose (UA) 50 mg/dL (Negative) 04/26/21 00:15 Urine Ketones Neg mg/dL (Negative) 04/26/21 00:15 Urine Blood Mod (Negative) 04/26/21 00:15 Urine Nitrite Neg (Negative) 04/26/21 00:15 Urine Bilirubin Sm (Negative) 04/26/21 00:15 Urine Ictotest Negative (Negative) 04/26/21 00:15 Urine Urobilinogen 4.0 mg/dL (<2.0) 04/26/21 00:15 Ur Leukocyte Esterase Neg (Negative) 04/26/21 00:15 Urine WBC (Auto) 12.0 /HPF (0.0-6.0) H 04/26/21 00:15 Urine RBC (Auto) 16.0 /HPF (0.0-6.0) 04/26/21 00:15 U Epithel Cells (Auto) 5.0 /HPF (0-13.0) 04/26/21 00:15 Hyaline Casts 20 /LPF 04/26/21 00:15 Urine Mucus Few /HPF 04/26/21 00:15 Coronavirus (PCR) Negative (Negative) 04/25/21 09:36 Microbiology: Microbiology 04/26/21 00:15 Urine,Clean Catch Urine Culture - Final 04/25/21 21:17 Peripheral/Venous Blood Culture - Preliminary NO GROWTH AFTER 72 HOURS 04/25/21 21:30 Peripheral/Venous Blood Culture - Preliminary NO GROWTH AFTER 72 HOURS Garcia/IV: Voiding Method Urinal Active Medications - Current Medications Current Medications: Generic Name Dose Route Start Last Admin Trade Name Freq PRN Reason Stop Dose Admin Acetaminophen 650 mg 04/26/21 04:02 04/29/21 11:18 Acetaminophen 325 Mg Tab PO 650 mg Q4H PRN Administration Pain MILD(1-3)/Fever >100.5/ROY Arformoterol Tartrate 15 mcg 04/28/21 15:00 04/29/21 21:08 Arformoterol 15 Mcg/2 Ml Nebu IH 15 mcg Q12H GEOFFREY Administration Budesonide 0.25 mg 04/28/21 20:00 04/29/21 09:08 Budesonide 0.25 Mg/2 Ml Nebu IH Not Given Q12HRT GEOFFREY Guaifenesin 600 mg 04/27/21 22:00 04/29/21 11:24 Guaifenesin Er 600 Mg Tab PO 600 mg BID GEOFFREY Administration Guaifenesin 10 ml 04/27/21 21:46 04/28/21 05:43 Guaifenesin Dm 200/20 Mg Oral Liqd 10 Ml PO 10 ml Q4H PRN Administration Cough Heparin Sodium (Porcine) 5,000 unit 04/26/21 06:00 04/29/21 20:52 Heparin 5,000 Unit/1 Ml Vial SUB-Q Not Given Q8HR GEOFFREY Sodium Chloride 1,000 mls @ 125 mls/hr 04/26/21 04:15 04/29/21 06:22 Nacl 0.9% 1000 Ml IV 125 mls/hr DIRECT GEOFFREY Administration Ceftriaxone Sodium 1 gm in 50 mls @ 100 mls/hr 04/26/21 10:00 04/29/21 11:11 Rocephin/Ns 1 Gm/50 Ml IV 100 mls/hr Q24H GEOFFREY Administration Protocol Azithromycin 500 mg in 250 mls @ 250 mls/hr 04/29/21 07:00 04/29/21 11:08 Zithromax/Ns IV 250 mls/hr Q24HR GEOFFREY Administration Levetiracetam 500 mg 04/26/21 10:00 04/29/21 11:38 Levetiracetam 500 Mg Tab PO 500 mg Q12H GEOFFREY Administration Lisinopril 10 mg 04/26/21 10:00 04/29/21 11:16 Lisinopril 10 Mg Tab PO 10 mg DAILY GEOFFREY Administration Magnesium Hydroxide 30 ml 04/26/21 04:02 04/29/21 06:22 Magnesium Hydroxide (Mom) Oral Liqd Udc PO 30 ml Q4H PRN Administration Constipation Metoprolol Tartrate 50 mg 04/26/21 10:00 04/29/21 11:23 Metoprolol Tartrate 50 Mg Tab PO 50 mg BID GEOFFREY Administration Nicotine 21 mg 04/26/21 10:00 04/29/21 11:29 Nicotine 21 Mg/24 Hr Patch TD 21 mg QDAY GEOFFREY Administration Phenytoin 400 mg 04/26/21 10:00 04/29/21 11:24 Phenytoin 100 Mg Capsule.Er PO 400 mg DAILY GEOFFREY Administration Sodium Chloride 10 ml 04/26/21 10:00 04/29/21 11:30 Sodium Chloride 0.9% 10 Ml Flush Syringe IV 10 ml BID GEOFFREY Administration Sodium Chloride 10 ml 04/26/21 04:02 Sodium Chloride 0.9% 10 Ml Flush Syringe IV PRN PRN LINE FLUSH Tamsulosin HCl 0.4 mg 04/26/21 10:00 04/29/21 11:17 Tamsulosin 0.4 Mg Cap PO 0.4 mg DAILY GEOFFREY Administration
[2021-04-30] MEDS: HEPARIN 5,000 UNIT/1 ML VIAL SUB-Q SCH ×3 (05:31→21:47)
[2021-04-30] MEDS: NICOTINE 21 MG/24 HR PATCH TD SCH (09:00)
[2021-04-30] MEDS: levETIRAcetam 500 MG TAB PO SCH ×2 (09:00→21:55)
[2021-04-30] MEDS: LISINOPRIL 10 MG TAB PO SCH (09:00)
[2021-04-30] MEDS: TAMSULOSIN 0.4 MG CAP PO SCH (09:00)
[2021-04-30] MEDS: PHENYTOIN 100 MG CAPSULE.ER PO SCH (09:00)
[2021-04-30] MEDS: guaiFENesin ER 600 MG TAB PO SCH ×2 (09:00→21:55)
[2021-04-30] MEDS: METOPROLOL TARTRATE 50 MG TAB PO SCH ×2 (09:00→21:55)
[2021-04-30] MEDS: AZITHROMYCIN/NS 500 MG/250 ML 500 MG/250 ML BAG IV SCH (09:01)
[2021-04-30] MEDS: cefTRIAXone/NS 1 GM/50 ML 1 GM/50 ML BAG IV SCH (09:01)
[2021-04-30] MEDS: SODIUM CHLORIDE 0.9% 1000 ML 1,000 ML IV SCH (09:11)
[2021-04-30] MEDS: ARFORMOTEROL 15 MCG/2 ML NEBU IH SCH ×2 (09:48→20:28)
[2021-04-30] MEDS: BUDESONIDE 0.25 MG/2 ML NEBU IH SCH ×2 (09:49→20:36)
--- NOTE | 2021-04-30 19:28 | Progress Note ---
Assessment and Plan Assessment and plan: 70-year-old -Irish male who lives his with PMH of HTN, ongoing tobacco smoking and seizure disorder brought into the emergency room by EMS for evaluation of altered mental status. Changes in mental status was said to have started sometime this afternoon. EMS was said to have been called earlier the day for lift assist because patient slid down his chair. No seizure activity reported. Reportedly his noticed that patient has been more confused during the day, has had some low-grade fever and has been having some mild cough. There has been no nausea or vomiting, no diarrhea and no abdominal pain. No history of recent travel and no sick contacts. According to son, patient received only 1 shot of COVID-19 vaccine. Acute encephalopathy Improving, able to answers most of the questions appropriately but still looks sluggish. According to his son, he was doing fine physically and mentally when visited him for Thanksgiving. Patient uses walker to ambulate but drives and traveled by air independent. CT head negative in ED. Fall at home, gait difficulty Etiology unclear Differential diagnosis: Dizziness/encephalopathy, sepsis, seizure PT and OT ordered and gait improving Suspected sepsis. Patient meets criteria given the tachycardia, tachypnea and diagnosis of UTI Blood cultures negative to date. Temperature 100.1 at the time of admission and then normal since. No leukocytosis. Chest x-ray unremarkable. COVID-19 PCR test are negative. UTI, appears mild. Urine cultures grew less than 10,000 CFU. Acute COPD exacerbation with hypoxia and dyspnea Patient has cough and some low-grade fever. No leukocytosis. Chest x-ray negative. Has wheezes and mild dyspnea at rest. Patient placed on previous O2 but weaned to room air Treating with antibiotics, steroids and nebs and improving Seizure disorder, no seizure activity reported. Continue home meds. Hypertension GERD Ongoing tobacco use. DVT prophylaxis: Subcu heparin Disposition: Home with PT versus subacute rehab, anticipating discharge in 1 to 2 days. Discussed with therapeutic case manager History Interval history: Patient is slowly but progressively improving clinically. Cough and dyspnea are better. O2 weaned to room air. Encephalopathy also improving. Answers questions appropriately. Patient reports that he is able to walk more steps with PT. Hospitalist Physical - Constitutional Vitals: Temp Pulse Resp BP Pulse Ox 97.4 F L 65 18 144/86 94 04/30/21 15:31 04/30/21 15:31 04/30/21 15:31 04/30/21 15:31 04/30/21 15:31 General appearance: Present: mild distress, well-nourished, other (Alert, fairly oriented, ) - EENT Eyes: Present: PERRL, EOM intact ENT: hearing intact, clear oral mucosa - Neck Neck: Present: supple - Respiratory Respiratory effort: normal Respiratory: bilateral: diminished, wheezing (Mild expiratory wheezes diffusely), negative: rales, rhonchi - Cardiovascular Rhythm: regular - Extremities Extremities: No edema - Abdominal General gastrointestinal: soft, non-tender, normal bowel sounds - Integumentary Integumentary: Absent: rash - Psychiatric Psychiatric: appropriate mood/affect - Neurologic Neurologic: moves all extremities, other (More alert, oriented, answers appropriately. Moves upper extremities equally without focal deficit. Speech normal.) HEART Score - HEART Score Troponin: Troponin T < 0.010 ng/mL (0.00-0.029) 04/25/21 21:17 Results - Labs CBC & Chem 7: 04/29/21 14:02 04/29/21 14:02 Labs: Laboratory Last Values WBC 4.6 K/mm3 (4.5-11.0) 04/29/21 14:02 RBC 4.48 M/mm3 (3.65-5.03) 04/29/21 14:02 Hgb 14.1 gm/dl (11.8-15.2) 04/29/21 14:02 Hct 42.6 % (35.5-45.6) 04/29/21 14:02 MCV 95 fl (84-94) H 04/29/21 14:02 MCH 32 pg (28-32) 04/29/21 14:02 MCHC 33 % (32-34) 04/29/21 14:02 RDW 14.4 % (13.2-15.2) 04/29/21 14:02 Plt Count 131 K/mm3 (140-440) L 04/29/21 14:02 Lymph % (Auto) 44.2 % (13.4-35.0) H 04/29/21 14:02 [place] % (Auto) 8.6 % (0.0-7.3) H 04/29/21 14:02 Eos % (Auto) 3.8 % (0.0-4.3) 04/29/21 14:02 Baso % (Auto) 0.5 % (0.0-1.8) 04/29/21 14:02 Lymph # (Auto) 2.0 K/mm3 (1.2-5.4) 04/29/21 14:02 [place] # (Auto) 0.4 K/mm3 (0.0-0.8) 04/29/21 14:02 Eos # (Auto) 0.2 K/mm3 (0.0-0.4) 04/29/21 14:02 Baso # (Auto) 0.0 K/mm3 (0.0-0.1) 04/29/21 14:02 Seg Neutrophils % 42.9 % (40.0-70.0) 04/29/21 14:02 Seg Neutrophils # 2.0 K/mm3 (1.8-7.7) 04/29/21 14:02 D-Dimer 485.00 ng/mlDDU (0-234) H 04/25/21 21:17 Sodium 144 mmol/L (137-145) 04/29/21 14:02 Potassium 4.0 mmol/L (3.6-5.0) 04/29/21 14:02 Chloride 108.1 mmol/L (98-107) H 04/29/21 14:02 Carbon Dioxide 21 mmol/L (22-30) L 04/29/21 14:02 Anion Gap 19 mmol/L 04/29/21 14:02 BUN 13 mg/dL (9-20) 04/29/21 14:02 Creatinine 0.8 mg/dL (0.8-1.3) 04/29/21 14:02 Estimated GFR > 60 ml/min 04/29/21 14:02 BUN/Creatinine Ratio 16 % 04/29/21 14:02 Glucose 129 mg/dL (75-100) H 04/29/21 14:02 Lactic Acid 1.50 mmol/L (0.7-2.0) 04/26/21 01:56 Calcium 8.3 mg/dL (8.4-10.2) L 04/29/21 14:02 Total Bilirubin 0.90 mg/dL (0.1-1.2) 04/29/21 14:02 AST 72 units/L (5-40) H 04/29/21 14:02 ALT 26 units/L (7-56) 04/29/21 14:02 Alkaline Phosphatase 115 units/L (35-129) 04/29/21 14:02 Lactate Dehydrogenase 368 units/L (91-180) H 04/25/21 21:17 Lactate Dehydrogenase 454 units/L (91-180) H 04/25/21 21:17 Troponin T < 0.010 ng/mL (0.00-0.029) 04/25/21 21:17 C-Reactive Protein 2.30 mg/dL (0.00-1.30) H 04/25/21 21:17 C-Reactive Protein 2.40 mg/dL (0.00-1.30) H 04/25/21 21:17 Total Protein 7.2 g/dL (6.3-8.2) 04/29/21 14:02 Albumin 3.3 g/dL (3.9-5) L 04/29/21 14:02 Albumin/Globulin Ratio 0.8 % 04/29/21 14:02 Procalcitonin 0.52 ng/mL (<0.15) 04/25/21 21:17 Urine Color Sia (Yellow) 04/26/21 00:15 Urine Turbidity Clear (Clear) 04/26/21 00:15 Urine pH 6.0 (5.0-7.0) 04/26/21 00:15 Ur Specific Mineral 1.020 (1.003-1.030) 04/26/21 00:15 Urine Protein 100 mg/dl mg/dL (Negative) 04/26/21 00:15 Urine Glucose (UA) 50 mg/dL (Negative) 04/26/21 00:15 Urine Ketones Neg mg/dL (Negative) 04/26/21 00:15 Urine Blood Mod (Negative) 04/26/21 00:15 Urine Nitrite Neg (Negative) 04/26/21 00:15 Urine Bilirubin Sm (Negative) 04/26/21 00:15 Urine Ictotest Negative (Negative) 04/26/21 00:15 Urine Urobilinogen 4.0 mg/dL (<2.0) 04/26/21 00:15 Ur Leukocyte Esterase Neg (Negative) 04/26/21 00:15 Urine WBC (Auto) 12.0 /HPF (0.0-6.0) H 04/26/21 00:15 Urine RBC (Auto) 16.0 /HPF (0.0-6.0) 04/26/21 00:15 U Epithel Cells (Auto) 5.0 /HPF (0-13.0) 04/26/21 00:15 Hyaline Casts 20 /LPF 04/26/21 00:15 Urine Mucus Few /HPF 04/26/21 00:15 Coronavirus (PCR) Negative (Negative) 04/25/21 09:36 Microbiology: Microbiology 04/25/21 21:17 Peripheral/Venous Blood Culture - Preliminary NO GROWTH AFTER 4 DAYS 04/25/21 21:30 Peripheral/Venous Blood Culture - Preliminary NO GROWTH AFTER 4 DAYS Garcia/IV: Voiding Method Condom Catheter Active Medications - Current Medications Current Medications: Generic Name Dose Route Start Last Admin Trade Name Freq PRN Reason Stop Dose Admin Acetaminophen 650 mg 04/26/21 04:02 04/29/21 11:18 Acetaminophen 325 Mg Tab PO 650 mg Q4H PRN Administration Pain MILD(1-3)/Fever >100.5/ROY Arformoterol Tartrate 15 mcg 04/28/21 15:00 04/30/21 09:48 Arformoterol 15 Mcg/2 Ml Nebu IH 15 mcg Q12H GEOFFREY Administration Azithromycin 500 mg 05/01/21 10:00 Azithromycin 250 Mg Tab PO 05/03/21 10:01 QDAY [facility] Protocol Budesonide 0.25 mg 04/28/21 20:00 04/30/21 09:49 Budesonide 0.25 Mg/2 Ml Nebu IH Not Given Q12HRT GEOFFREY Guaifenesin 600 mg 04/27/21 22:00 04/30/21 09:00 Guaifenesin Er 600 Mg Tab PO 600 mg BID GEOFFREY Administration Guaifenesin 10 ml 04/27/21 21:46 04/28/21 05:43 Guaifenesin Dm 200/20 Mg Oral Liqd 10 Ml PO 10 ml Q4H PRN Administration Cough Heparin Sodium (Porcine) 5,000 unit 04/26/21 06:00 04/30/21 16:01 Heparin 5,000 Unit/1 Ml Vial SUB-Q 5,000 unit Q8HR GEOFFREY Administration Sodium Chloride 1,000 mls @ 125 mls/hr 04/26/21 04:15 04/30/21 09:11 Nacl 0.9% 1000 Ml IV 125 mls/hr DIRECT GEOFFREY Administration Levetiracetam 500 mg 04/26/21 10:00 04/30/21 09:00 Levetiracetam 500 Mg Tab PO 500 mg Q12H GEOFFREY Administration Lisinopril 10 mg 04/26/21 10:00 04/30/21 09:00 Lisinopril 10 Mg Tab PO 10 mg DAILY GEOFFREY Administration Magnesium Hydroxide 30 ml 04/26/21 04:02 04/29/21 06:22 Magnesium Hydroxide (Mom) Oral Liqd Udc PO 30 ml Q4H PRN Administration Constipation Metoprolol Tartrate 50 mg 04/26/21 10:00 04/30/21 09:00 Metoprolol Tartrate 50 Mg Tab PO 50 mg BID GEOFFREY Administration Nicotine 21 mg 04/26/21 10:00 04/30/21 09:00 Nicotine 21 Mg/24 Hr Patch TD 21 mg QDAY GEOFFREY Administration Phenytoin 400 mg 04/26/21 10:00 04/30/21 09:00 Phenytoin 100 Mg Capsule.Er PO 400 mg DAILY GEOFFREY Administration Sodium Chloride 10 ml 04/26/21 10:00 04/30/21 09:03 Sodium Chloride 0.9% 10 Ml Flush Syringe IV 10 ml BID GEOFFREY Administration Sodium Chloride 10 ml 04/26/21 04:02 Sodium Chloride 0.9% 10 Ml Flush Syringe IV PRN PRN LINE FLUSH Tamsulosin HCl 0.4 mg 04/26/21 10:00 04/30/21 09:00 Tamsulosin 0.4 Mg Cap PO 0.4 mg DAILY GEOFFREY Administration
[2021-05-01] MEDS: ARFORMOTEROL 15 MCG/2 ML NEBU IH SCH ×2 (02:12→05:15)
[2021-05-01] MEDS: BUDESONIDE 0.25 MG/2 ML NEBU IH SCH ×2 (05:53→08:16)
[2021-05-01] MEDS: HEPARIN 5,000 UNIT/1 ML VIAL SUB-Q SCH ×2 (06:00→13:58)
[2021-05-01] MEDS ORDERED: BUDESONIDE 0.5 MG/2 ML NEBU IH SCH ×2 (09:00)
[2021-05-01] MEDS ORDERED: ARFORMOTEROL 15 MCG/2 ML NEBU IH SCH (09:00)
[2021-05-01 09:30] VITALS: BP 138/86
[2021-05-01] MEDS ORDERED: AZITHROMYCIN 250 MG TAB PO SCH (10:00)
[2021-05-01] MEDS ORDERED: predniSONE 20 MG TAB PO SCH (10:00)
[2021-05-01] MEDS: PHENYTOIN 100 MG CAPSULE.ER PO SCH (10:25)
[2021-05-01] MEDS: guaiFENesin ER 600 MG TAB PO SCH (10:25)
[2021-05-01] MEDS: NICOTINE 21 MG/24 HR PATCH TD SCH (10:26)
[2021-05-01] MEDS: LISINOPRIL 10 MG TAB PO SCH (10:26)
[2021-05-01] MEDS: METOPROLOL TARTRATE 50 MG TAB PO SCH (10:26)
[2021-05-01] MEDS: TAMSULOSIN 0.4 MG CAP PO SCH (10:26)
[2021-05-01] MEDS: levETIRAcetam 500 MG TAB PO SCH (10:29)
--- NOTE | 2021-05-01 11:16 | Discharge Summary ---
Providers - Providers Date of Admission: 04/26/21 14:00 Date of discharge: 05/01/21 Attending physician: PABLO RICHARDSON 04/28/21 14:21 Physical Therapy Evaluation and Treat [CONS] Routine Comment: Reason For Exam: Generalized weakness, difficulty ambulating Primary care physician: MARY SANCHEZ MD Hospitalization Condition: Stable Disposition: 30 STILL A PATIENT Exam - Constitutional Vitals: Temp Pulse Resp BP Pulse Ox 97.9 F 67 18 138/86 97 05/01/21 08:06 05/01/21 11:10 05/01/21 08:06 05/01/21 08:06 05/01/21 08:18 Plan Follow up with: PRIMARY MD LAURA [Primary Care Provider] - 3-5 Days
[2021-05-01] MEDS ORDERED: BUDESONIDE 0.25 MG/2 ML NEBU IH SCH (20:00)
== END 2021-05-01 15:20 | disposition home health service (06) | DRG 871 ==
LOC: ED 20:54 → 3A 04-26 04:02 → OBSVTOIN 04-26 14:00 → 4A 04-27 06:27
PROVIDERS: ADMIT Internal Medicine Geriatric Medicine; ATTEND Internal Medicine
DX: A41.9 Sepsis, unspecified organism (principal); G92.8 Other toxic encephalopathy; N39.0 Urinary tract infection, site not specified; J44.1 Chronic obstructive pulmonary disease with (acute) exacerbation; E86.0 Dehydration; I10 Essential (primary) hypertension; K21.9 Gastro-esophageal reflux disease without esophagitis; G40.909 Epilepsy, unspecified, not intractable, without status epilepticus; Z20.822 Contact with and (suspected) exposure to COVID-19; Z79.899 Other long term (current) drug therapy; Z90.49 Acquired absence of other specified parts of digestive tract; F17.200 Nicotine dependence, unspecified, uncomplicated; W18.39XA Other fall on same level, initial encounter; Y93.89 Activity, other specified; Y92.89 Other specified places as the place of occurrence of the external cause; Y99.8 Other external cause status; R26.9 Unspecified abnormalities of gait and mobility
CPT/HCPCS: 36415; 70450; 71045; 80048; 80053; 81001; 82140; 83615; 84145; 84484; 85025; 85379; 86140; 87040; 87086; 94640; 94760; G0378; J3490; Q0162; J0456; J0696; J1644; J7030; J7120; J7512; U0003